=== PATIENT | male | born 1985 | race Two or more races ===

== ENCOUNTER 2017-07-12 15:57 | Emergency (ER) | payer OTHER, SELFPAY ==
[~2017-07-12] VITALS: Ht 180.3 cm; Wt 95.5 kg
[2017-07-12 16:58] LABS: BASO # 0.1 K/mm3 (0.0-0.2); BASO % 1.2 % (0.0-1.0); EOS # 0.4 K/mm3 (0.0-0.50); LARGE UNSTAINED CELL # 0.2 K/mm3 (0.0-0.4); LARGE UNSTAINED CELL % 1.9 % (0.0-4.0); LYMPH # 2.6 K/mm3 (1.5-4.5); LYMPH % 28.2 % (24.0-44.0); MEAN CORPUSCULAR HEMOGLOBIN 29.6 pg (27.0-33.0); MEAN CORPUSCULAR HGB CONC 33.8 g/dl (32.0-36.5); MEAN CORPUSCULAR VOLUME 87.4 fl (80.0-96.0); MONO # 0.6 K/mm3 (0.0-0.8); MONO % 6.7 % (0.0-5.0); NEUTROPHILS # 5.1 K/mm3 (1.8-7.7); PLATELET COUNT, AUTOMATED 234 k/mm3 (150-450); RED CELL DISTRIBUTION WIDTH 12.3 % (11.5-14.5); WHITE BLOOD COUNT 8.8 K/mm3 (4.0-10.0)
--- NOTE | 2017-07-12 16:59 | REP ---
Clinical: Bilateral flank pain. Findings: Lung bases are clear. Visualized heart and pericardium normal. Liver, spleen, pancreas, collapsed gallbladder, bilateral adrenal glands and kidneys are normal. Specifically, no perinephric stranding, hydroureteronephrosis, intrarenal or obstructing ureteral calculi are identified. The enteric system is without obstruction or acute inflammatory process and a normal terminal ileum and appendix are identified in the right lower quadrant. Pelvis demonstrates collapsed normal bladder and age appropriate prostate/seminal vesicles. No free air. No free fluid. No adenopathy. Abdominal aorta without aneurysm. Surrounding musculoskeletal structures are intact. Impression: Normal noncontrast CT of the abdomen and pelvis. Signed by Woody Berry MD 07/12/2017 04:50 P
[2017-07-12 17:24] LABS: ANION GAP 6 MEQ/L (8-16); BLOOD UREA NITROGEN 10 MG/DL (7-18); CALCIUM LEVEL 9.1 MG/DL (8.5-10.1); CARBON DIOXIDE LEVEL 31 MEQ/L (21-32); CHLORIDE LEVEL 103 MEQ/L (98-107); CREATININE FOR GFR 0.89 MG/DL (0.70-1.30); GLOMERULAR FILTRATION RATE > 60.0 (>60); GLUCOSE, FASTING 83 MG/DL (70-105); POTASSIUM SERUM 3.9 MEQ/L (3.5-5.1); SODIUM LEVEL 140 MEQ/L (136-145)
[2017-07-12] MEDS ORDERED: NORCOTAB PO (18:04)
[2017-07-12] MEDS ORDERED: CYCL10TA PO (18:04)
[2017-07-12 18:13] VITALS: BP 121/74
== END 2017-07-12 18:14 | disposition home or self-care (01) ==
LOC: M ED 15:57
DX: S39.012A Strain of muscle, fascia and tendon of lower back, initial encounter (principal); X58.XXXA Exposure to other specified factors, initial encounter; Y92.9 Unspecified place or not applicable; Y93.9 Activity, unspecified; Y99.9 Unspecified external cause status; F43.10 Post-traumatic stress disorder, unspecified; F17.200 Nicotine dependence, unspecified, uncomplicated

== ENCOUNTER → 2017-12-07 | Outpatient (REF) | payer OTHER | LOC: M SFHCLERA 18:50 | DX: J00 Acute nasopharyngitis [common cold] (principal) ==

== ENCOUNTER 2018-08-20 16:14 | Emergency (ER) | payer OTHER | END 2018-08-20 17:27 | disposition home or self-care (01) | LOC: M ED 16:14 | DX: S02.5XXA Fracture of tooth (traumatic), initial encounter for closed fracture (principal); X58.XXXA Exposure to other specified factors, initial encounter; Y92.89 Other specified places as the place of occurrence of the external cause; F43.10 Post-traumatic stress disorder, unspecified; F17.200 Nicotine dependence, unspecified, uncomplicated | CPT/HCPCS: 99282 ==

== ENCOUNTER 2019-01-14 07:13 | Day surgery (SDC) | payer OTHER ==
[~2019-01-14] VITALS: Ht 180.3 cm; Wt 98.0 kg
[~2019-01-14 07:13] MED LIST: ACET-683 PO; AMOX500C PO; CYCL10TA PO; IBUP-1022 PO; IBUP1TAB7 PO; LR 1,000 ML IV ONE; MULT1TAB10 PO; NORCOTAB PO; VITA100067 PO; ceFAZolin SOD 1 GM in D5W MINI-BAG PLUS 50 ML IV ONE
[2019-01-14 07:35] LABS: HEMATOCRIT 49.4 % (42.0-52.0); HEMOGLOBIN 16.4 g/dl (13.5-17.5); MEAN CORPUSCULAR HEMOGLOBIN 28.4 pg (27.0-33.0); MEAN CORPUSCULAR HGB CONC 33.2 g/dl (32.0-36.5); MEAN CORPUSCULAR VOLUME 85.6 fl (80.0-96.0); PLATELET COUNT, AUTOMATED 316 10^3/uL (150-450); RED BLOOD COUNT 5.77 10^6/uL (4.30-6.10); WHITE BLOOD COUNT 11.4 10^3/uL (4.0-10.0)
[2019-01-14] MEDS ORDERED: ceFAZolin SOD 1 GM in D5W MINI-BAG PLUS 50 ML IV ONE (07:45)
[2019-01-14 08:07] LABS: BLOOD UREA NITROGEN 11 MG/DL (7-18); CALCIUM LEVEL 8.8 MG/DL (8.5-10.1); CARBON DIOXIDE LEVEL 28 MEQ/L (21-32); CHLORIDE LEVEL 106 MEQ/L (98-107); CREATININE FOR GFR 0.92 MG/DL (0.70-1.30); GLOMERULAR FILTRATION RATE > 60.0 (>60); GLUCOSE, FASTING 81 MG/DL (70-100); POTASSIUM SERUM 4.5 MEQ/L (3.5-5.1); SODIUM LEVEL 139 MEQ/L (136-145)
[2019-01-14] MEDS ORDERED: fentaNYL 250 MCG/5 ML INJECTION (J3010) As Ordered ONE (08:33)
[2019-01-14] MEDS ORDERED: ROCURONIUM BROMIDE 50 MG/5 ML VIAL As Ordered ONE ×2 (08:33→10:19)
[2019-01-14] MEDS ORDERED: PROPOFOL 200 MG/20 ML VIAL As Ordered ONE (08:33)
[2019-01-14] MEDS ORDERED: LIDOCAINE 2% INJ 100 MG/5 ML SDV (FOR ANES.) As Ordered ONE (08:33)
[2019-01-14] MEDS ORDERED: dexameTHASONE 4 MG/ML 1ML VIAL (J1100) As Ordered ONE (08:33)
[2019-01-14] MEDS ORDERED: MIDAZOLAM INJ 2 MG/2 ML VIAL (J2250) As Ordered ONE (08:33)
[2019-01-14] MEDS ORDERED: BUPIVACAINE HCL 0.25% 10 ML VIAL As Ordered ONE (09:15)
[2019-01-14] MEDS ORDERED: BUPIVACAINE LIPOSOME/PF 1.3% 20ML VIAL (13.3MG/ML)(EXPAREL)(C9290 PER1MG) As Ordered ONE (09:15)
[2019-01-14] MEDS ORDERED: ONDANSETRON 4MG/2ML VIAL (J2405) As Ordered ONE (10:24)
[2019-01-14] MEDS ORDERED: SUGAMMADEX SODIUM 500 MG/5 ML VIAL (BRIDION) As Ordered ONE (10:33)
[2019-01-14] MEDS ORDERED: KETOROLAC 60 MG/2 ML VIAL (J1885) As Ordered ONE (10:36)
[2019-01-14] MEDS ORDERED: HYDROmorphone HCL 2 MG/ML 1ML VIAL (J1170) As Ordered ONE (10:48)
[2019-01-14] MEDS ORDERED: LR 1,000 ML IV SCH ×3 (11:00→12:30)
[2019-01-14] MEDS ORDERED: fentaNYL 100 MCG/2 ML INJECTION (J3010) IV PRN ×2 (11:00→12:30)
[2019-01-14] MEDS ORDERED: HYDROMORPHONE HCL 0.5 MG/ 0.5 ML SYRINGE (J1170 PER 1) IV PRN ×2 (11:00→12:30)
[2019-01-14] MEDS ORDERED: ONDANSETRON 4MG/2ML VIAL (J2405) IV PRN (11:15)
[2019-01-14] MEDS ORDERED: NORCO, ANEXSIA 5/325MG TABLET (HYDROcodone/ACETAMINOPHEN) PO PRN ×2 (11:15→12:30)
[2019-01-14 12:50] VITALS: BP 117/75
--- NOTE | 2019-01-14 17:10 | RO ---
DATE OF PROCEDURE: 01/14/2019 PREOPERATIVE DIAGNOSIS: Incisional hernia. POSTOPERATIVE DIAGNOSIS: Incisional hernia. OPERATIVE PROCEDURE: Incisional hernia repair. SURGEON: Ang Rodriguez MD PREPARATION OPERATOR: ANESTHESIA: General ESTIMATED BLOOD LOSS: Minimal. FLUIDS: Crystalloid. BRIEF PROCEDURE SUMMARY: The patient was brought to the operating room and was given general anesthesia. After adequate anesthesia and preoperative antibiotics were given the patient was prepped and draped in the usual sterile fashion. Next, a midline incision at the upper portion of his previous midline incision was made with a skin knife. Electrocautery was used to cut through dermis and underlying subcutaneous tissue down to the hernia sac itself, which was appreciated. There was a small hole within the fascia and this was less than a centimeter in size, probably 7to 8 mm. The fatty tissue was removed through this area and it was preperitoneal fat. Once this was resected, no bowel was appreciated coming through this area. I cleared up the fascia around this area and indeed a smaller 4 mm size hole was appreciated in the fascia just lateral on the right lateral aspect of the incision. This was closed with one suture of a #0 Ethibond. The small incisional hernia up above was closed with a [id number] #0 Ethibond times two. Once this was cleared, no other hernias were appreciated in this area. The area was copiously irrigated. Local Marcaine with epinephrine was injected in this area, #2-0 Vicryl was used to approximate the deep subcutaneous tissue, #3-0 Vicryl was used to approximate the dermis, #4-0 Vicryl was used to approximate the skin. Steri-Strips and a dry sterile dressing was applied. The patient was awakened from his anesthesia, extubated, brought to the recovery room awake, alert, and hemodynamically stable. Sponge and needle counts correct times two.
== END 2019-01-14 13:00 | disposition home or self-care (01) ==
LOC: M SDC 07:13
PROVIDERS: ATTEND Surgery
DX: K43.2 Incisional hernia without obstruction or gangrene (principal); F41.9 Anxiety disorder, unspecified; E78.00 Pure hypercholesterolemia, unspecified; F43.10 Post-traumatic stress disorder, unspecified; E66.9 Obesity, unspecified; Z68.31 Body mass index [BMI] 31.0-31.9, adult; Z72.0 Tobacco use
CPT/HCPCS: 36415; 49560; 80048; 85027; 88302; C9290; J0690; J1100; J1170; J1885; J2250; J2405; J3010

== ENCOUNTER 2019-02-09 20:29 | Emergency (ER) | payer OTHER ==
[~2019-02-09] VITALS: Ht 180.3 cm; Wt 102.3 kg
[~2019-02-09 20:29] MED LIST changes: +HYDR-3715 PO; -LR 1,000 ML IV ONE; -NORCOTAB PO; -ceFAZolin SOD 1 GM in D5W MINI-BAG PLUS 50 ML IV ONE
[2019-02-09] MEDS ORDERED: GABA600T4 PO (20:43)
[2019-02-09] MEDS ORDERED: OXYCODONE/APAP 5MG/325MG(BULK FOR ED) 1 TABLET PO ONE (22:15)
[2019-02-09] MEDS ORDERED: METHOCARBAMOL 500 MG TAB PO ONE (22:15)
[2019-02-09] MEDS ORDERED: predniSONE 20 MG TAB PO ONE (22:15)
[2019-02-09] MEDS ORDERED: PRED10TA2 PO (22:16)
[2019-02-09] MEDS ORDERED: ROBA500T PO (22:16)
[2019-02-09 22:28] VITALS: BP 131/86
== END 2019-02-09 22:29 | disposition home or self-care (01) ==
LOC: M ED 20:29
DX: M54.42 Lumbago with sciatica, left side (principal); F43.10 Post-traumatic stress disorder, unspecified; Z79.899 Other long term (current) drug therapy

== ENCOUNTER 2019-03-17 16:47 | Day surgery (SDC) | payer OTHER ==
[~2019-03-17] VITALS: Ht 180.3 cm; Wt 97.7 kg
[~2019-03-17 16:47] MED LIST changes: +GABA600T4 PO; +PRED10TA2 PO; +ROBA500T PO
[2019-03-17 17:21] LABS: BASO % 0.4 % (0.0-1.0); EOS # 0.2 10^3/uL (0.0-0.50); EOS % 1.5 % (0.0-3.0); HEMATOCRIT 44.5 % (42.0-52.0); HEMOGLOBIN 15.3 g/dl (13.5-17.5); LYMPH # 2.6 10^3/uL (1.5-4.5); LYMPH % 24.8 % (24.0-44.0); MEAN CORPUSCULAR HEMOGLOBIN 29.4 pg (27.0-33.0); MEAN CORPUSCULAR HGB CONC 34.4 g/dl (32.0-36.5); MEAN CORPUSCULAR VOLUME 85.4 fl (80.0-96.0); MONO # 0.9 10^3/uL (0.0-0.8); MONO % 8.3 % (0.0-5.0); NEUTROPHILS # 6.9 10^3/uL (1.8-7.7); NEUTROPHILS % 64.7 % (36.0-66.0); PLATELET COUNT, AUTOMATED 296 10^3/uL (150-450); RED BLOOD COUNT 5.21 10^6/uL (4.30-6.10); WHITE BLOOD COUNT 10.6 10^3/uL (4.0-10.0)
[2019-03-17 17:30] LABS: APPEARANCE, URINE CLEAR (CLEAR); BACTERIA, URINE AUTO NEGATIVE (NEGATIVE); BILIRUBIN, URINE AUTO NEGATIVE (NEGATIVE); BLOOD, URINE BLOOD 1+ (NEGATIVE); COLOR, URINE STRAW (YELLOW); GLUCOSE, URINE (UA) AUTO NEGATIVE (NEGATIVE); KETONE, URINE AUTO NEGATIVE (NEGATIVE); LEUKOCYTE ESTERASE, URINE AUTO NEGATIVE (NEGATIVE); NITRITE, URINE AUTO NEGATIVE (NEGATIVE); PROTEIN, URINE AUTO NEGATIVE (NEGATIVE); RBC, URINE AUTO 3 /HPF (0-3); SPECIFIC GRAVITY URINE AUTO 1.003 (1.002-1.035); SQUAMOUS EPITHELIAL CELL UR AU 0 /HPF (0-6); UROBILINOGEN, URINE AUTO 0.2 mg/dL (0.0-2.0); WBC, URINE AUTO 0 /HPF (0-3)
[2019-03-17 17:43] LABS: ALBUMIN 4.1 GM/DL (3.2-5.2); ALT/SGPT 19 U/L (12-78); BILIRUBIN,DIRECT 0.1 MG/DL (0.0-0.2); BILIRUBIN,TOTAL 0.4 MG/DL (0.2-1.0); BLOOD UREA NITROGEN 8 MG/DL (7-18); CALCIUM LEVEL 8.9 MG/DL (8.5-10.1); CARBON DIOXIDE LEVEL 28 MEQ/L (21-32); CHLORIDE LEVEL 103 MEQ/L (98-107); CREATININE FOR GFR 0.82 MG/DL (0.70-1.30); GLOMERULAR FILTRATION RATE > 60.0 (>60); GLUCOSE, FASTING 81 MG/DL (70-100); SODIUM LEVEL 136 MEQ/L (136-145); TOTAL PROTEIN 7.7 GM/DL (6.4-8.2)
[2019-03-17] MEDS ORDERED: ONDANSETRON 4MG/2ML VIAL (J2405) IV ONE (18:00)
[2019-03-17] MEDS ORDERED: ISOVUE-370 76% 100ML VIAL (Q9967) As Ordered ONE (18:16)
--- NOTE | 2019-03-17 18:44 | REPVR ---
EXAM: CT Abdomen and Pelvis With Contrast EXAM DATE/TIME: 03/17/2019 6:21 PM CLINICAL HISTORY: 33 years old, male; Abdominal pain; Generalized; Additional info: Rlq pain; R/O appy TECHNIQUE: Imaging protocol: Axial computed tomography images of the abdomen and pelvis with intravenous contrast. Coronal and sagittal reformatted images were created and reviewed. Radiation optimization: All CT scans at this facility use at least one of these dose optimization techniques: automated exposure control; mA and/or kV adjustment per patient size (includes targeted exams where dose is matched to clinical indication); or iterative reconstruction. Contrast material: ISOVUE 370; Contrast volume: 100 ml; Contrast route: IV; COMPARISON: CT ABD/PEL W/IV ORAL CONTRAS 11/06/2018 6:47 PM FINDINGS: Lungs: Atelectasis right lower lobe. ABDOMEN: Liver: There is a diffuse decrease in hepatic parenchymal density, consistent with fatty infiltration. Gallbladder and bile ducts: Normal. No calcified stones. No ductal dilation. Pancreas: Normal. No ductal dilation. Spleen: Normal. No splenomegaly. Adrenals: Normal. No mass. Kidneys and ureters: Normal. No hydronephrosis. Stomach and bowel: Normal. No obstruction. No mucosal thickening. Appendix: The appendix demonstrates diffuse distention measuring 12 mm in maximum thickness with periappendiceal inflammation, consistent with acute appendicitis. No abscess demonstrated. PELVIS: Bladder: Unremarkable as visualized. Reproductive: Unremarkable as visualized. ABDOMEN and PELVIS: Intraperitoneal space: Normal. No free air. No significant fluid collection. Bones/joints: No acute fracture. No dislocation. Soft tissues: Unremarkable. Vasculature: Normal. No abdominal aortic aneurysm. Lymph nodes: Normal. No enlarged lymph nodes. IMPRESSION: 1. There is a diffuse decrease in hepatic parenchymal density, consistent with fatty infiltration. 2. Acute appendicitis. A critical call has been made to speak with the ordering physician/practitioner. This report will be amended once consultation has occurred. Electronically signed by: Lloyd Brizuela On 03/17/2019 18:43:56 PM
[2019-03-17] MEDS ORDERED: MORPHINE 4 MG/ML 1ML VIAL/SYRINGE (J2270) IV ONE (19:00)
[2019-03-17] MEDS ORDERED: PIPERACILLIN/TAZOBACTAM SOD 3.375 GM in D5W MINI-BAG PLUS 50 ML IV ONE (19:00)
[2019-03-17] MEDS ORDERED: KETOROLAC 60 MG/2 ML VIAL (J1885) As Ordered ONE (19:17)
[2019-03-17] MEDS ORDERED: MIDAZOLAM INJ 2 MG/2 ML VIAL (J2250) As Ordered ONE (19:17)
[2019-03-17] MEDS ORDERED: ONDANSETRON 4MG/2ML VIAL (J2405) As Ordered ONE (19:17)
[2019-03-17] MEDS ORDERED: LIDOCAINE 2% INJ 100 MG/5 ML SDV (FOR ANES.) As Ordered ONE (19:17)
[2019-03-17] MEDS ORDERED: dexameTHASONE 4 MG/ML 1ML VIAL (J1100) As Ordered ONE (19:17)
[2019-03-17] MEDS ORDERED: fentaNYL 250 MCG/5 ML INJECTION (J3010) As Ordered ONE (19:17)
[2019-03-17] MEDS ORDERED: PROPOFOL 200 MG/20 ML VIAL As Ordered ONE (19:18)
[2019-03-17] MEDS ORDERED: ROCURONIUM BROMIDE 50 MG/5 ML VIAL As Ordered ONE (19:18)
[2019-03-17] MEDS ORDERED: BUPIVACAINE/EPIN 0.25% 30 ML VIAL As Ordered ONE (19:37)
[2019-03-17] MEDS ORDERED: SUCCINYLCHOLINE 100 MG/5 ML SYRINGE (J0330) As Ordered ONE (19:57)
[2019-03-17] MEDS ORDERED: PHENYLephrine HCL 500 MCG/5 ML (100MCG/ML) SYRINGE (J2370) As Ordered ONE (20:15)
--- NOTE | 2019-03-17 20:17 | HPE ---
DATE OF ADMISSION: 03/17/2019 CHIEF COMPLAINT: Right lower quadrant pain. HISTORY OF PRESENT ILLNESS: The patient is a 33-year-old male who presents with right lower quadrant abdominal pain, started on Sunday. It got progressively worse over the day today, started around 3 o'clock this morning. It moved from around the umbilicus down to the right lower quadrant, so he came into emergency room this evening for evaluation. In the emergency room (ER), he had a slightly elevated white count as well as CT findings suspicious for appendicitis, so I was called to evaluate. No prior trauma to the lower abdomen. He did have an incisional hernia repair done by Dr. Rodriguez a few weeks ago. No other problems with his abdomen recently. Denies fevers, chills, nausea, vomiting or changes in bowel movements. PAST MEDICAL HISTORY: Post-traumatic stress disorder (PTSD). Migraines. PAST SURGICAL HISTORY: Hernia repair. Exploratory lap for intussusception. Bilateral inguinal hernia repair. ALLERGIES: None. HOME MEDICATIONS: None. SOCIAL HISTORY: Smokes half a pack a day. Denies drug or alcohol abuse. FAMILY HISTORY: Noncontributory. REVIEW OF SYSTEMS: Pertinent positives and negatives as stated in the history of the present illness. PHYSICAL EXAMINATION: General: Alert and oriented times three. No acute distress. Vital signs: Temperature 98.1, pulse 87, respirations 16, blood pressure 133/89, pulse oximetry 98% on room air. HEENT: Pupils equally round and react to light accommodation. Heart: S1, S2, regular rate and rhythm. Lungs: Clear to auscultation bilaterally. Abdomen: Soft, tender to palpation right lower quadrant, localized guarding, midline supraumbilical recent incision from open hernia repair. Extremities: No clubbing, cyanosis or edema. LABORATORY DATA: White count 10.6, hemoglobin 15.3, platelets 296, potassium 4, creatinine 0.82. IMAGING: CT abdomen and pelvis shows thickened appendix, dilated to 12 mm with periappendiceal inflammation consistent with acute appendicitis. No signs of an abscess. ASSESSMENT/PLAN: The patient is a 33-year-old male, signs and symptoms consistent with acute appendicitis. Recommendation is to proceed with laparoscopic, possible open appendectomy. Risks and benefits of procedure not limited to but including bleeding, infection, hernia formation, damage to surrounding structures and need for further surgery were discussed in detail with the patient. Informed consent was obtained and procedure was planned. Postoperatively, as long as everything goes well, plan will be to discharge him home today. He will be given pain medications to take home and he will be able to followup with me in the office in 2 weeks.
[2019-03-17] MEDS ORDERED: SUGAMMADEX SODIUM 500 MG/5 ML VIAL (BRIDION) As Ordered ONE (20:24)
[2019-03-17] MEDS ORDERED: NORCO, ANEXSIA 5/325MG TABLET (HYDROcodone/ACETAMINOPHEN) As Ordered ONE (20:54)
[2019-03-17] MEDS ORDERED: fentaNYL 100 MCG/2 ML INJECTION (J3010) As Ordered ONE (20:54)
[2019-03-17] MEDS: NORCO, ANEXSIA 5/325MG TABLET (HYDROcodone/ACETAMINOPHEN) PO PRN ×2 (20:55→22:11)
[2019-03-17] MEDS ORDERED: NORC1TAB7 PO (20:55)
[2019-03-17] MEDS: fentaNYL 100 MCG/2 ML INJECTION (J3010) IV PRN ×4 (20:55→21:12)
[2019-03-17] MEDS ORDERED: ONDANSETRON 4MG/2ML VIAL (J2405) IV PRN (21:15)
[2019-03-17] MEDS ORDERED: NORCO, ANEXSIA 5/325MG TABLET (HYDROcodone/ACETAMINOPHEN) PO PRN (21:15)
[2019-03-17] MEDS ORDERED: LR 1,000 ML IV SCH (21:15)
--- NOTE | 2019-03-17 21:26 | RO ---
DATE OF PROCEDURE: 03/17/2019 PREOPERATIVE DIAGNOSIS: Acute appendicitis. POSTOPERATIVE DIAGNOSIS: Acute appendicitis. PROCEDURE: Laparoscopic appendectomy. SURGEON: Dr. Solo Gray CONTAINER REPAIRER: None. ANESTHESIA: General. ESTIMATED BLOOD LOSS: 5 mL. COMPLICATIONS: None. INDICATIONS FOR PROCEDURE: Patient is a 33-year-old male who presents with right lower quadrant abdominal pain, found to have acute appendicitis. Recommendation was to proceed with laparoscopic, possible open appendectomy. Risks and benefits of the procedure not limited to but include bleeding, infection, hernia formation, damage to surrounding structures, and need for further surgery were discussed in detail with the patient. Informed consent was obtained and procedure was planned. DESCRIPTION OF PROCEDURE: The patient was brought back to operating room three, after sufficient sedation, the abdomen was sterilely prepped and draped. Next, a time-out was done to confirm proper patient, proper procedure. Following that, a 5 mm incision was made in the left upper quadrant, Veress needle inserted and the abdomen was insufflated to 15 mmHg. Next, a 5 mm Optiview port was used to gain access to the abdomen. Once the abdomen was entered, there were multiple adhesions along the entire midline from previous exploratory lap. A 5 mm port was placed in the left lower quadrant. Using the Enseal, all of the omental adhesions along the anterior abdominal wall were taken down. After doing so, I was able to place an 8 port supraumbilically in the midline. Using that port, in the left lower quadrant, I was able to identify the appendix, elevate it up in the air and took down the mesoappendix all way to the base of the appendix using the Enseal. Once that was completed, the base of the appendix was ligated with two PDS Endoloops and then amputated using the Enseal. It was placed inside of a 5 mm EndoCatch bag and brought out through the supraumbilical port site. After doing so, the fascia at the umbilical port site was closed with a [id number] #0 Vicryl suture. The abdomen was then desufflated. Skin incisions closed with #4-0 Vicryl subcuticular sutures. The abdomen was cleaned and dried. Steri-Strips, 4x4 and tape were applied, thus ending procedure.
[2019-03-17 22:20] VITALS: BP 117/78
[2019-03-19] MEDS ORDERED: TRAM50TA2 PO (17:51)
[2019-03-21] MEDS ORDERED: HYDR-3715 PO (19:37)
== END 2019-03-17 22:36 | disposition home or self-care (01) ==
LOC: M ED 16:47 → M SDC 19:08
PROVIDERS: ATTEND Surgery
DX: K35.80 Unspecified acute appendicitis (principal); F43.10 Post-traumatic stress disorder, unspecified; G43.909 Migraine, unspecified, not intractable, without status migrainosus; Z72.0 Tobacco use

== ENCOUNTER 2019-03-23 15:02 | Emergency (ER) | payer OTHER ==
[~2019-03-23] VITALS: Ht 180.3 cm; Wt 97.7 kg
[~2019-03-23 15:02] MED LIST changes: +NORC1TAB7 PO; +TRAM50TA2 PO
[2019-03-23] MEDS ORDERED: AMOX500T2 (15:14)
[2019-03-23] MEDS ORDERED: NS 1,000 ML IV SCH (15:30)
[2019-03-23] MEDS ORDERED: ONDANSETRON 4MG/2ML VIAL (J2405) IV ONE (15:30)
[2019-03-23 15:45] LABS: HEMATOCRIT 43.6 % (42.0-52.0); HEMOGLOBIN 14.9 g/dl (13.5-17.5); MEAN CORPUSCULAR HEMOGLOBIN 29.4 pg (27.0-33.0); MEAN CORPUSCULAR HGB CONC 34.2 g/dl (32.0-36.5); PLATELET COUNT, AUTOMATED 331 10^3/uL (150-450); RED BLOOD COUNT 5.07 10^6/uL (4.30-6.10)
[2019-03-23 15:55] LABS: INR 0.98; PROTHROMBIN TIME 13.1 SECONDS (12.1-14.4)
[2019-03-23 16:08] LABS: BLOOD UREA NITROGEN 12 MG/DL (7-18); CARBON DIOXIDE LEVEL 27 MEQ/L (21-32); CHLORIDE LEVEL 105 MEQ/L (98-107); CREATININE FOR GFR 0.89 MG/DL (0.70-1.30); GLOMERULAR FILTRATION RATE > 60.0 (>60); GLUCOSE, FASTING 88 MG/DL (70-100); POTASSIUM SERUM 4.4 MEQ/L (3.5-5.1); SODIUM LEVEL 139 MEQ/L (136-145)
[2019-03-23] MEDS ORDERED: ISOVUE-370 76% 100ML VIAL (Q9967) As Ordered ONE (16:15)
[2019-03-23 17:11] VITALS: BP 116/72
--- NOTE | 2019-03-24 07:56 | REP ---
REASON: Fall yesterday. COMPARISON: 6 days ago. CONTRAST: 100 mL Isovue 370. Patient is status post appendectomy since the prior exam. The lung bases are essentially clear and unchanged with minimal subsegmental atelectatic changes and dependent atelectatic changes present. The liver, gallbladder, spleen, pancreas, adrenal glands, and kidneys are again seen without be within normal limits. The abdominal aorta para-aortic regions are unchanged and again seen to be within normal limits. There is no free intraperitoneal air. There is no intestinal obstruction. Multiple gas filled and partially fluid filled small bowel loops are seen in the abdomen in no particular fashion. The markedly dilated appendix seen on the prior examination has been surgically removed. There is a small amount of fluid in the right lateroconal fascia likely the result of postoperative change. There is no evidence of intestinal obstruction or significant inflammatory disease. CT PELVIS: There is no mass or adenopathy. There is no free fluid or free air. The bowel loops and their mesenteries are within normal limits. Bone window technique throughout the exam shows no change in the osseous structures. IMPRESSION: Status post appendectomy. There appears to be a mild postoperative ileus. This should be correlated clinically with followup. Other findings as described above. Electronically Signed by Ta Munroe DO 03/24/2019 08:44 A
--- NOTE | 2019-03-25 14:52 | ED PDOC ---
Post-Departure Follow-Up dr juarez faxed formal report of ct abd/p for fu Ailyn Whyte MD March 25, 2019 14:52
== END 2019-03-23 17:40 | disposition home or self-care (01) ==
LOC: M ED 15:02
DX: S20.219A Contusion of unspecified front wall of thorax, initial encounter (principal); W19.XXXA Unspecified fall, initial encounter; Y92.89 Other specified places as the place of occurrence of the external cause; Z98.890 Other specified postprocedural states
CPT/HCPCS: 74177; 80048; 85027; 85610; 96361; 96374; 99284; J2405; Q9967

== ENCOUNTER 2019-04-22 16:02 | Emergency (ER) | payer OTHER ==
[~2019-04-22] VITALS: Ht 180.3 cm; Wt 98.6 kg
[~2019-04-22 16:02] MED LIST changes: +AMOX500T2
[2019-04-22 16:03] VITALS: BP 131/68
== END 2019-04-22 19:18 | disposition left against medical advice (07) ==
LOC: M ED 19:10
DX: Z53.29 Procedure and treatment not carried out because of patient's decision for other reasons (principal)

== ENCOUNTER → 2019-05-02 | Outpatient (REF) | payer OTHER ==
[~2019-05-02] MED LIST changes: +ACET1TAB16; +LIDO5DIS41 TOP; +MEDR4PAK PO; +NAPR-837 PO; +VALI5TAB PO
[2019-05-02 16:35] LABS: COLLAGEN EPINEPHRINE 121 SECONDS (74-162)
[2019-05-02 16:53] LABS: INR 1.07; PROTHROMBIN TIME 13.6 SECONDS (11.8-14.0)
== END ==
LOC: M LABDRAW1 16:00
PROVIDERS: ATTEND Physical Medicine & Rehabilitation
DX: M51.36 Other intervertebral disc degeneration, lumbar region (principal)

== ENCOUNTER 2019-05-03 14:35 | Emergency (ER) | payer OTHER ==
[~2019-05-03 14:35] MED LIST changes: -ACET1TAB16; -LIDO5DIS41 TOP; -MEDR4PAK PO; -NAPR-837 PO; -VALI5TAB PO
[2019-05-03] MEDS ORDERED: ACET1TAB16 (14:43)
[2019-05-03] MEDS ORDERED: dexameTHASONE 20 MG/5 ML VIAL (J1100) IM ONE (15:00)
[2019-05-03] MEDS ORDERED: KETOROLAC 60 MG/2 ML VIAL (J1885) IM ONE (15:00)
[2019-05-03] MEDS ORDERED: diazePAM 5 MG TAB PO ONE (15:00)
[2019-05-03] MEDS ORDERED: PERCOCET 5MG/325MG TAB PO ONE (15:00)
--- NOTE | 2019-05-03 15:48 | REP ---
Clinical: Sudden, acute pain. Technique: Axial noncontrast images from T12 through mid sacrum with coronal and sagittal re-formations. Findings: Vertebral bodies are intact. Alignment and lordosis maintained. No acute fracture / compression injury or subluxation. Small posterior disc bulge at L5-S1 is consistent and stable when compared to MRI dated 03/29/2019. Spinal canal is patent. Posterior elements and spinous processes are intact. Paravertebral soft tissues are normal. Impression: No significant acute findings. Small posterior disc bulge at L5-S1 relatively stable compared to MRI dated 03/29/2019. Electronically Signed by Woody Berry MD 05/03/2019 03:40 P
[2019-05-03] MEDS ORDERED: NAPR-837 PO (16:31)
[2019-05-03] MEDS ORDERED: MEDR4PAK PO (16:31)
[2019-05-03] MEDS ORDERED: VALI5TAB PO (16:31)
[2019-05-03] MEDS ORDERED: LIDO5DIS41 TOP (16:31)
[2019-05-03 16:43] VITALS: BP 130/87
[2019-05-08] MEDS ORDERED: IBUP1TAB7 PO (14:07)
== END 2019-05-03 16:50 | disposition home or self-care (01) ==
LOC: EDBD 14:35 → M ED 14:35
DX: G89.29 Other chronic pain (principal); M54.5 Low back pain; G43.909 Migraine, unspecified, not intractable, without status migrainosus; F43.10 Post-traumatic stress disorder, unspecified; F17.210 Nicotine dependence, cigarettes, uncomplicated
CPT/HCPCS: 72131; 96372; 99284; J1100; J1885

== ENCOUNTER 2019-05-04 15:34 | Emergency (ER) | payer OTHER ==
[~2019-05-04] VITALS: Ht 180.3 cm; Wt 97.7 kg
[~2019-05-04 15:34] MED LIST changes: +ACET1TAB16; +LIDO5DIS41 TOP; +MEDR4PAK PO; +NAPR-837 PO; +VALI5TAB PO
[2019-05-04] MEDS ORDERED: MORPHINE 2 MG/ML 1ML SYRINGE (J2270) IV ONE ×2 (16:30→20:00)
[2019-05-04] MEDS ORDERED: PERCOCET 5MG/325MG TAB PO ONE ×2 (17:15→22:00)
--- NOTE | 2019-05-04 21:23 | REPVR ---
EXAM: MR Lumbar Spine Without Contrast. EXAM DATE/TIME: 05/04/2019 7:17 PM CLINICAL HISTORY: 33 years old, male; Low back pain and lumbago with sciatica; Patient HX: PT states heard pop yesterday and had instant pain and since has had increase pain and today numbness down left leg; Additional info: Injury yesterday, today radiculopathy/paresthesia lt buttock TECHNIQUE: Imaging protocol: Multiplanar magnetic resonance images of the lumbar spine without intravenous contrast. COMPARISON: CT Spine, lumbar w/o contrast 05/03/2019 3:23 PM FINDINGS: Vertebrae: Unremarkable. Spinal cord: Normal conus terminates at the T12-L1 disc space level. L1-L2: Normal. L2-L3: Normal. L3-L4: Normal.. L4-L5: Normal. L5-S1: Mild decreased disc signal. Small posterior central disc protrusion and annular fissure. No nerve root impingement or spinal stenosis. Minimal degenerative facet arthrosis at L5-S1. Soft tissues: Unremarkable. IMPRESSION: Small posterior central disc protrusion and annular fissure at L5-S1 without nerve root impingement or spinal stenosis. Electronically signed by: Virgil Hernandez On 05/04/2019 21:23:02 PM
[2019-05-04 22:11] VITALS: BP 115/75
[2019-05-04] MEDS ORDERED: LIDOCAINE 5% (LIDODERM) PATCH TD ONE (22:15)
[2019-05-05] MEDS ORDERED: **NOTE PATIENT COMMENT** MISC XX SCH (10:00)
--- NOTE | 2019-05-05 13:28 | ED PDOC ---
Post-Departure Follow-Up dr muñoz and arabella mittal faxed formal report of mri ls spine for fu Ailyn Whyte MD May 05, 2019 13:28
[2019-05-08] MEDS ORDERED: IBUP1TAB7 PO (14:07)
== END 2019-05-04 22:23 | disposition home or self-care (01) ==
LOC: M ED 15:34
DX: M54.17 Radiculopathy, lumbosacral region (principal); M54.32 Sciatica, left side; M51.27 Other intervertebral disc displacement, lumbosacral region; E78.5 Hyperlipidemia, unspecified; G43.909 Migraine, unspecified, not intractable, without status migrainosus; F17.210 Nicotine dependence, cigarettes, uncomplicated
CPT/HCPCS: 72148; 96374; 96376; 99284; J2270

== ENCOUNTER → 2019-07-04 | Outpatient (CLI) | payer OTHER ==
--- NOTE | 2019-07-17 02:21 | ECWPNPC ---
PATIENT NAME: HELENE SILVERMAN : 1985 GENDER: MALE VISIT DATE: 07/04/2019 DISCHARGE DATE: 07/04/19 1143 VISIT LOCKED DATE TIME: PHYSICIAN: ISIDRO HICKMAN MD RESOURCE: ISIDRO HICKMAN MD REASON FOR APPOINTMENT 1. POST ABD. PAIN D/T SURGERY HISTORY OF PRESENT ILLNESS NEW PATIENT CONSULT: WHEN DID YOUR PAIN FIRST START? . BRIEFLY DESCRIBE HOW YOUR PAIN STARTED? . HOW DOES YOUR PAIN CHANGE WITH TIME? . DOES YOUR PAIN AWAKEN YOU FROM SLEEP? . HOW MANY HOURS OF SLEEP DO YOU NORMALLY GET? . ANY DIAGNOSTIC TESTING? . FACILITY WHERE TESTS WERE DONE? ____. PAIN TREATMENT TREATMENT YES CANCER HAVE YOU EVER HAD ANY TYPE OF CANCER?NO NO. 33 YEAR OLD MALE PATIENT WITH A HISTORY OF CHRONIC ABDOMINAL PAIN. THE PATIENT DESCRIBES THE PAIN SHARP, SHOOTING, STABBING, NIGHTLY, AND CONTINUOUS WITH A PAIN SCORE OF 4-10/10 DEPENDING ON PHYSICAL ACTIVITY. THE PATIENT STATES HIS PAIN BEGINS IN HIS LOW BACK AND RADIATES INTO HIS LEGS WITH ALSO LOSS OF SENSATION AND WEAKNESS IN BOTH LEGS. THE PATIENT SAYS HE HAS BEEN SUFFERING FROM HIS PAIN FOR SEVERAL YEARS AFTER HE WAS PICKING UP AN ITEM WHEN HE EXPERIENCED A POP IN HIS BACK. THE PATIENT MENTIONS HE HAS A HISTORY OF ABDOMINAL SURGERIES, INCLUDING A BILATERAL INGUINAL REPAIR WITH MESH, YET THE PAIN CONTINUES TO PERSIST. THE PATIENT SAYS HIS PAIN IS AFFECTING HIS ABILITY TO PERFORM HIS DAILY ACTIVITIES SUCH WORKING, COMPLETING TASKS AT HOME, AND GROCERY SHOPPING. THE PATIENT SAYS HE USES TYLENOL NEEDED FOR HIS PAIN AND IT HAS HELPED AID IN PAIN RELIEF. THE PATIENT SAYS HE HAS TRIED GABAPENTIN IN THE PAST, HOWEVER HE EXPERIENCED NUMEROUS SIDE EFFECTS, SUCH DIZZINESS, WEAKNESS, AND TINGLING SENSATIONS. PATIENT DENIES UNEXPLAINABLE WEIGHT LOSS, FEVER, CHILLS, NEW CHANGES ON HIS URINARY OR BOWEL CONTROL. PAIN SCREENING: PATIENT HAS A COMPLAINT OF ACUTE OR CHRONIC PAIN :YES FALL RISK SCREENING: SCREENING : NO FALLS IN THE PAST YEAR. MARTIN INVENTORY: QUESTIONNAIRE ASSESSEDTBD SCORE VALUE CALCULATED TBD CURRENT MEDICATIONS TAKING ACETAMINOPHEN 500 MG TABLET 2 TABLETS NEEDED ORALLY 3 TIMES A DAY NOT-TAKING GABAPENTIN 800 MG TABLET 1 TABLET ORALLY TWICE A DAY NOT-TAKING AMOXICILLIN 875 MG TABLET 1 TABLET ORALLY EVERY 12 HRS MEDICATION LIST REVIEWED AND RECONCILED WITH THE PATIENT PAST MEDICAL HISTORY ABDOMINAL PAIN BACK PAIN PTSD MIGRAINES ALLERGIES N.K.D.A. SURGICAL HISTORY INTUSUSSEPTION 2007 BILATERAL INGUINAL HERNIA REPAIR WITH MESH 01/2010 INCISIONAL HERNIA REPAIR 12/2018 APPENDECTOMY 03/2019 FAMILY HISTORY FATHER: ALIVE 59 YRS, DEGENERATIVE JOINT DISEASE MOTHER: ALIVE 59 YRS, DEGENERATIVE JOINT DISEASE SIBLINGS: ALIVE 39 YRS SON(S): ALIVE 9 YRS MATERNAL GRAND MOTHER: , ALZHEIMER'S 1 SISTER(S) - HEALTHY. 1 SON(S) . SOCIAL HISTORY GENERAL: TOBACCO USE ARE YOU A:CURRENT SMOKER ARE YOU INTERESTED IN QUITTING?THINKING ABOUT QUITTING PREVIOUS QUIT ATTEMPTS?YES, MORE THAN 6 MONTHS AGO. COUNSELED THE PATIENT ON SMOKING CESSATION, EDUCATION [id number]/30/2019 VAPORNO E-CIGARETTENO OTHERS AT HOME: YES. HOUSING: HOUSE WITH STAIRS. EDUCATION LEVEL OF EDUCATION:NOT FINISHED COLLEGE DIET: REGULAR. LANGUAGE LANGUAGES SPOKEN:URDU RECREATIONAL DRUG USE DRUG USE? PAST USE OF MARIJUANA. NONE IN PAST 15 YEARS. EXERCISE: NO REGULAR EXERCISE. 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 GNOSTICISM [id number] SCIENTOLOGY MARITAL STATUS: . ALCOHOL SCREENING DID YOU HAVE A DRINK CONTAINING ALCOHOL IN THE PAST YEAR?YES HOW OFTEN DID YOU HAVE A DRINK CONTAINING ALCOHOL IN THE PAST YEAR?MONTHLY OR LESS (1 POINT) HOW MANY DRINKS DID YOU HAVE ON A TYPICAL DAY WHEN YOU WERE DRINKING IN THE PAST YEAR?1 OR 2 (0 POINTS) HOW OFTEN DID YOU HAVE SIX OR MORE DRINKS ON ONE OCCASION IN THE PAST YEAR?NEVER (0 POINTS) POINTS1 INTERPRETATIONNEGATIVE OCCUPATION: [employer]. HOSPITALIZATION/MAJOR DIAGNOSTIC PROCEDURE SURGERY 03/2019 REVIEW OF SYSTEMS REVIEWED BY: PROVIDER: ISIDRO HICKMAN MD . CONSTITUTIONAL: ANY CHANGE IN YOUR MEDICAL CONDITION? NO . CHILLS NO . FEVER NO . INFECTION: DO YOU HAVE NEW INFECTIONS? NO . DO YOU HAVE HISTORY OF MRSA? NO . MUSCULOSKELETAL: ANY NEW PATTERNS OF PAIN OR NUMBNESS? YES - WORSE . SYTEMIC LUPUS NO . GASTROENTEROLOGY: ANY NEW CHANGE IN BOWEL CONTROL? NO . BARRETTS ESOPHAGUS NO . CIRRHOSIS NO . HEPATITIS NO . LIVER FAILURE NO . ACID REFLUX NO . UNEXPLAINED WEIGHT LOSS NO . GENITOURINARY: ANY NEW CHANGE IN BLADDER CONTROL? NO . IS THERE A CHANCE YOU COULD BE ? NO . HEMATOLOGY/LYMPH: DO YOU TAKE ANY BLOOD THINNERS? (FOR EXAMPLE- COUMADIN, PLAVIX, AGGRENOX, PLATEL, PRADAXA, OR XARELTO) NO . WHEN WAS YOUR LAST DOSE? DATE: TIME: . LOW PLATELET COUNT NO . SICKLE CELL DISEASE NO . VON WILLIEBRANDS NO . FACTOR V LEIDEN NO . THALLASEMIA NO . ANEMIA NO . EASY BRUISING NO . NEUROLOGY: HAVE YOU FALLEN IN THE PAST 12 MONTHS? YES 04/2019 - FELT "POP" IN BACK, WENT TO ED. . ANY NEW EXTREMITY NUMBNESS OR WEAKNESS? YES - NUMBNESS AND TINGLING BOTH LEGS . HEAD INJURY NO . DEMENTIA NO . CEREBRAL PALSY NO . MULTIPLE SCLEROSIS NO . DIZZINESS NO . HEADACHE YES . STROKES YES - HEMIPLEGIC MIGRAINE AGE 13 . VERTIGO NO . CARDIOLOGY: DO YOU HAVE A PACEMAKER OR DEFIBRILLATOR? NO . ANGINA NO . HEART ATTACK NO . HEART SURGERY NO . CONGESTIVE HEART FAILURE/FLUID OVERLOAD NO . CHEST PAIN NO . HIGH BLOOD PRESSURE NO . IRREGULAR HEART BEAT NO . RESPIRATORY: HAVE YOU BEEN SICK IN THE PAST WEEK? NO . FEVER NO . FLU LIKE SYMPTOMS? NO . CPAP NO . BYPAP NO . ASTHMA NO . EMPHYSEMA NO . CHRONIC LUNG DISEASES NO . SHORTNESS OF BREATH ON EXERTION NO . DO YOU USE ANY TYPE OF TOBACCO (SMOKE, SMOKELESS, CHEW)? YES . COUGH NO . SNORING NO . INTEGUMENTARY: DO YOU HAVE ANY RASHES OR OPEN SORES? NO . ALLERGIC/IMMUNO: ARE YOU ALLERGIC TO IV DYE? NO . ANY NEW ALLERGIES? NO . PSYCHIATRIC: DO YOU HAVE THOUGHTS OF HURTING YOURSELF OR SOMEONE ELSE? NO . ARE YOU ABUSED, NEGLECTED, OR IN AN UNSAFE ENVIRONMENT? NO . ENDOCRINOLOGY: ARE YOU DIABETIC? NO . THYROID DISORDER NO . OTHER: DO YOU NEED ANY PRESCRIPTIONS? UNSURE . IF YES, PLEASE LIST: ____ . ANY NEW PROBLEMS WITH YOUR MEDICATIONS? NO . WHEN DID YOU LAST EAT? ____ . WHEN DID YOU LAST DRINK? ____ . WHAT DID YOU LAST DRINK? ____ . NAME OF PERSON DRIVING YOU HOME? ____ . DO YOU HAVE ANY OTHER QUESTIONS OR CONCERNS YES - INSURANCE PROBLEMS PAYING FOR MEDICATIONS . VITAL SIGNS WT 200.6 LBS, HT 71 IN, BMI 27.97 INDEX, BP 120/84 MM HG, HR 78 /MIN, RR 18 /MIN, TEMP 97.9 F, OXYGEN SAT % 100%, NA INITIALS SC 09:44, REVIEWED BY: JOHN. EXAMINATION GENERAL EXAMINATION: PATIENT IS ALERT O X 3 AND COOPERATIVE. LUNGS CLEAR, TO AUSCULTATION. HEART: NO MURMURS OR GALLOPS; FACIAL CRANIAL NERVES ARE GROSSLY NORMAL. GOOD SYMMETRY OF FACIAL MUSCLE MOVEMENT. NORMAL VISUAL RUSSO. PATIENT IS LIMPING A LITTLE FROM THE RIGHT LEG. TENDERNESS IN THE LOW BACK. LEFT LEG IS WEAKER AT EXTENSION AND FLEXION. SURGICAL SCAR AT SUPERIOR INFERIOR OF UMBILICUS WITH A 3 1/2 INCH PERPENDICULAR SCAR LINE. SURGICAL SCAR PRESENT AT PELVIC AREA WELL. PAIN OVER THE ANTERIOR PELVIC AREA, PARTICULARLY OVER THE ILIOINGUINAL AREA ON BOTH SIDES. PRESSING OVER THE ABDOMINAL AREA CREATES DISCOMFORT. 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 SILVERMAN'S PAIN MANAGEMENT CASE. I HAD A LONG CONVERSATION WITH THE PATIENT ABOUT THE OPTION OF DCS TRIAL TO CONSIDER THE PERMANENT IMPLANT. THE PATIENT SAYS HE MAY CONSIDER THE TRIAL IN THE FUTURE. DUE TO THE PELVIC PAIN, I WOULD LIKE TO MOVE FORWARD WITH A BILATERAL ILIOINGUINAL NERVE BLOCK AT THIS TIME. DUE TO THE ABDOMINAL PAIN, I WOULD LIKE TO MOVE FORWARD WITH A SCAR NEUROMA INJECTION A WEEK AFTER THE FIRST INJECTION. WE DISCUSSED THE BENEFITS, RISKS, AND ALTERNATIVES OF BOTH INJECTIONS AND THE PATIENT WOULD LIKE TO PROCEED WITH THE INJECTIONS. I AM REFERRING THE PATIENT TO PALLIATIVE CARE TO CONSIDER MEDICATION MANAGEMENT FOR THE PATIENT. THE PATIENT WILL FOLLOW UP IN SEVERAL WEEKS AFTER THE INJECTIONS. INSTRUCTIONS WERE GIVEN, QUESTIONS WERE ANSWERED, PATIENT REPORTS UNDERSTANDING AND AGREES WITH THE PLAN. I, HOMER HERNANDEZ, DOCUMENTED THE ABOVE INFORMATION ACTING A SCRIBE FOR DR. HICKMAN. I HAVE REVIEWED THE ABOVE DOCUMENT, WRITTEN BY HOMER HOANG AND I VERIFY THAT IT IS ACCURATE. DEAR DEDRICK MARTINEZ, DO: THANK YOU FOR YOUR KIND REFERRAL OF HELENE SILVERMAN. IF YOU WANT TO DISCUSS HIS CASE WITH ME PLEASE CALL ME AT THE PAIN CENTER AT [phone]. SINCERELY, ISIDRO HICKMAN MD PAIN MEDICINE . PREVENTIVE MEDICINE PAIN CLINIC TEACHING: PROCEDURE TEACHING PRINTED INFORMATION ON ILEOINGUINAL NERVE BLOCK GIVEN TO AND REVIEWED WITH PT. ALSO REVIEWED INFORMATION ON ABDOMINAL SCAR NEUROMA INJECTIONS. PRINTED PRE-PROCEDURE INSTRUCTIONS GIVEN TO AND REVIEWED WITH PT. FOR BOTH PROCEDURES AND PT. VERBALIZED UNDERSTANDING. AD. PROCEDURE CODES FA211 ESTABILISHED PATIENT [facility] CHARGE [id number] CURRENT MEDS W/DOSAGES DOCUMENTED G8730 PAIN ASSESS POS TOOL F/U PLAN DOC DISPOSITION & COMMUNICATION FOLLOW UP REASON: CALLI ILIOINGUINAL NERVE BLOCK 2 UNITS/REFER TO PALLIATIVE CARE FOR MED MANAGE/2 UNITS SCAR NEUROMA INJECTION--1 WEEK APART ELECTRONICALLY SIGNED BY ISIDRO HICKMAN MD, MD ON 07/11/2019 AT 05:32 PM EDT DISCLAIMER : THIS IS A VISIT SUMMARY EXTRACTED FROM THE [email or web address] CHART. IT IS NOT A COPY OF THE [email or web address] PROGRESS NOTE. MTDD
== END ==
LOC: M PAIN 09:30
PROVIDERS: ATTEND Anesthesiology
DX: G57.91 Unspecified mononeuropathy of right lower limb (principal); G57.92 Unspecified mononeuropathy of left lower limb; R10.9 Unspecified abdominal pain; G89.29 Other chronic pain; D36.15 Benign neoplasm of peripheral nerves and autonomic nervous system of abdomen; Z98.890 Other specified postprocedural states; Z86.59 Personal history of other mental and behavioral disorders; G43.909 Migraine, unspecified, not intractable, without status migrainosus; F17.210 Nicotine dependence, cigarettes, uncomplicated; Z79.899 Other long term (current) drug therapy

== ENCOUNTER 2019-09-28 18:31 | Emergency (ER) | payer OTHER ==
[~2019-09-28] VITALS: Ht 180.3 cm; Wt 99.5 kg
[2019-09-28] MEDS ORDERED: GABA-845 PO (18:45)
[2019-09-28] MEDS ORDERED: CYMB1CAP5 PO (18:45)
[2019-09-28] MEDS ORDERED: ENDO5TAB PO (18:45)
[2019-09-28 20:23] LABS: INFLUENZA A AMPLIFICATION NEGATIVE (NEGATIVE); INFLUENZA B AMPLIFICATION NEGATIVE (NEGATIVE)
[2019-09-28 21:05] VITALS: BP 115/78
[2019-09-28] MEDS ORDERED: BENZ200C70 PO (21:11)
[2019-09-28] MEDS ORDERED: AFRI0.058 (21:11)
[2019-09-28] MEDS ORDERED: ALL10TAB2 PO (21:11)
[2019-09-28] MEDS ORDERED: BENZONATATE 100 MG CAP PO ONE (21:15)
--- NOTE | 2019-09-29 08:19 | REP ---
Clinical: Acute cough . Comparison: None . Technique: PA and lateral. Findings: The mediastinum and cardiac silhouette are normal. The lung espino are clear and without acute consolidation, effusion, or pneumothorax. The skeletal structures are intact and normal. Impression: 1. No acute cardiopulmonary process. Electronically Signed by Woody Berry MD 09/29/2019 08:11 A
== END 2019-09-28 21:21 | disposition home or self-care (01) ==
LOC: M ED 18:31
DX: J06.9 Acute upper respiratory infection, unspecified (principal); Z86.69 Personal history of other diseases of the nervous system and sense organs; F17.210 Nicotine dependence, cigarettes, uncomplicated; Z79.899 Other long term (current) drug therapy

== ENCOUNTER → 2019-11-11 | Outpatient (CLI) | payer OTHER ==
[~2019-11-11] MED LIST changes: +AFRI0.058; +ALL10TAB2 PO; +BENZ200C70 PO; +BUPIVACAINE HCL 0.25% 30 ML VIAL As Ordered ONE; +CYMB1CAP5 PO; +ENDO5TAB PO; +GABA-845 PO; +ISOVUE-M 300 61% 15ML VIAL (Q9967) As Ordered ONE; +LIDOCAINE 1% SDV INJ 30 ML VIAL As Ordered ONE; +TRIAMCINOLONE ACETONIDE SUSP 40 MG/ML VIAL (J3301) As Ordered ONE; +diazePAM 2 MG TAB As Ordered ONE; +oxyCODONE 5MG TAB As Ordered ONE
--- NOTE | 2019-11-19 04:52 | ECWPNPC ---
PATIENT NAME: HELENE SILVERMAN : 1985 GENDER: MALE VISIT DATE: 11/11/2019 DISCHARGE DATE: 11/11/19 1035 VISIT LOCKED DATE TIME: PHYSICIAN: ISIDRO HICKMAN MD RESOURCE: ISIDRO HICKMAN MD REASON FOR APPOINTMENT 1. ILAT ILEO INGUINAL NB-[address] Baltazar, HISTORY OF PRESENT ILLNESS HISTORY OF PRESENT ILLNESS: PAIN THE PATIENT DESCRIBES THE PAIN... FALL RISK SCREENING: SCREENING :NO FALLS REPORTED IN THE LAST YEAR CURRENT MEDICATIONS TAKING ACETAMINOPHEN 500 MG TABLET 2 TABLETS NEEDED ORALLY 3 TIMES A DAY, NOTES: 11/10/19@1700 TAKING OXYCODONE HCL 10 MG TABLET 1 TABLET NEEDED ORALLY EVERY 6 HRS, NOTES: 11/10/18@1999 TAKING NORTRIPTYLINE HCL 10 MG CAPSULE 2 CAPSULE ORALLY BID, NOTES: 11/10/18 TAKING GABAPENTIN 300 MG CAPSULE 2 TABLET ORALLY BEFORE BEDTIME, NOTES: 11/10/19@1999 DISCONTINUED AMOXICILLIN 875 MG TABLET 1 TABLET ORALLY EVERY 12 HRS MEDICATION LIST REVIEWED AND RECONCILED WITH THE PATIENT PAST MEDICAL HISTORY ABDOMINAL PAIN BACK PAIN PTSD MIGRAINES ALLERGIES N.K.D.A. SURGICAL HISTORY INTUSUSSEPTION 2007 BILATERAL INGUINAL HERNIA REPAIR WITH MESH 01/2010 INCISIONAL HERNIA REPAIR 12/2018 APPENDECTOMY 03/2019 FAMILY HISTORY FATHER: ALIVE 60 YRS, DEGENERATIVE JOINT DISEASE MOTHER: ALIVE 60 YRS, DEGENERATIVE JOINT DISEASE SIBLINGS: ALIVE 40 YRS SON(S): ALIVE 10 YRS MATERNAL GRAND MOTHER: , ALZHEIMER'S 1 SISTER(S) - HEALTHY. 1 SON(S) . SOCIAL HISTORY GENERAL: TOBACCO USE ARE YOU A:CURRENT SMOKER ARE YOU INTERESTED IN QUITTING?NOT READY TO QUIT COUNSELED THE PATIENT ON SMOKING EFFECTS, EDUCATION [id number]/02/2020 PATIENT COUNSELED ON THE DANGERS OF TOBACCO USE AND URGED TO QUIT:11/06/2019 VAPORNO E-CIGARETTENO OTHERS AT HOME: YES. HOUSING: HOUSE WITH STAIRS. EDUCATION LEVEL OF EDUCATION:NOT FINISHED COLLEGE DIET: REGULAR. LANGUAGE LANGUAGES SPOKEN:ISRAELI RECREATIONAL DRUG USE DRUG USE? PAST USE OF MARIJUANA. NONE IN PAST 15 YEARS. EXERCISE: NO REGULAR EXERCISE. LEARNING BARRIERS / SPECIAL NEEDS CHANGE FROM LAST VISIT?YES BARRIERS TO LEARNING?NO HEARING IMPAIRED?YES TINNITIS VISION IMPAIRED?NO COGNITIVELY IMPAIRED?NO READINESS TO LEARN?YES LEARNING PREFERENCES?NO LEARNING CAPABILITIES PRESENT?YES EMOTIONAL BARRIERS?NO SPECIAL DEVICES?YES :CANE RARELY IF NEEDED. PRINTING TABLE HAND NEEDED?NO PAIN CLINIC PFS, CLERGY, PUBLIC HEALTH REFERRALS HAS THE PATIENT BEEN EDUCATED REGARDING HIS/HER PLAN OF CARE?YES HAS THE PATIENT BEEN EDUCATED REGARDING PAIN, THE RISK FOR PAIN, THE IMPORTANCE OF EFFECTIVE PAIN MANAGEMENT, AND THE PAIN ASSESSMENT PROCESS?YES LATEX QUESTIONNAIRE LATEX ALLERGY : HAVE YOU EVER DEVELOPED ANY TYPE OF REACTION AFTER HANDLING LATEX PRODUCTS SUCH RUBBER GLOVES, CONDOMS, DIAPHRAGMS, BALLOONS, SOCKS, OR UNDERWEAR?NO LATEX ALLERGY : HAVE YOU EVER DEVELOPED ANY TYPE OF REACTION DURING OR AFTER DENTAL APPOINTMENT, VAGINAL/RECTAL EXAMINATION, SURGICAL PROCEDURE, OR ANY OTHER EXPOSURE?NO LATEX RISK : HAVE YOU EVER HAD ANY DIFFICULTY BREATHING OR HIVES AFTER EATING OR HANDLING ANY FRUITS, OR VEGETABLES; SUCH KIWI, BANANAS, STONE FRUITS, OR CHESTNUTSNO LATEX RISK : DO YOU HAVE A PREVIOUS PERSONAL HISTORY OF MORE THAN NINE SURGERIES, SPINA BIFIDA, OR REPEATED CATHERIZATIONS? NO LATEX RISK : ARE YOU FREQUENTLY EXPOSED TO LATEX PRODUCTS IN YOUR OCCUPATION?YES DATE ASKED : 11/06/2019 CAFFEINE CAFFEINE USE?YES MOUNTAIN DEW 60 OZ PER DAY ADVANCE DIRECTIVE ADVANCE DIRECTIVE DISCUSSED WITH PATIENT:YES 11/06/2019 INFORMATION OFFERED AND DECLINED. JS [facility] [id number] SIKHISM MARITAL STATUS: . ALCOHOL SCREENING DID YOU HAVE A DRINK CONTAINING ALCOHOL IN THE PAST YEAR?YES HOW OFTEN DID YOU HAVE SIX OR MORE DRINKS ON ONE OCCASION IN THE PAST YEAR?NEVER (0 POINTS) HOW MANY DRINKS DID YOU HAVE ON A TYPICAL DAY WHEN YOU WERE DRINKING IN THE PAST YEAR?1 OR 2 (0 POINTS) HOW OFTEN DID YOU HAVE A DRINK CONTAINING ALCOHOL IN THE PAST YEAR?MONTHLY OR LESS (1 POINT) POINTS1 INTERPRETATIONNEGATIVE OCCUPATION: [employer]. PRE-SCREENING COMPLETED 11/06/2019 1630 JS. HOSPITALIZATION/MAJOR DIAGNOSTIC PROCEDURE SURGERY 03/2019 MIGRAINE / MINI STROKE? 1999 REVIEW OF SYSTEMS REVIEWED BY: PROVIDER: . CONSTITUTIONAL: ANY CHANGE IN YOUR MEDICAL CONDITION? NO . CHILLS NO . FEVER NO . INFECTION: DO YOU HAVE NEW INFECTIONS? NO . DO YOU HAVE HISTORY OF MRSA? NO . MUSCULOSKELETAL: ANY NEW PATTERNS OF PAIN OR NUMBNESS? NO . GASTROENTEROLOGY: ANY NEW CHANGE IN BOWEL CONTROL? NO . GENITOURINARY: ANY NEW CHANGE IN BLADDER CONTROL? NO . IS THERE A CHANCE YOU COULD BE ? NO . HEMATOLOGY/LYMPH: DO YOU TAKE ANY BLOOD THINNERS? (FOR EXAMPLE- COUMADIN, PLAVIX, AGGRENOX, PLATEL, PRADAXA, OR XARELTO) NO . WHEN WAS YOUR LAST DOSE? DATE: TIME: . NEUROLOGY: HAVE YOU FALLEN IN THE PAST 12 MONTHS? YES . ANY NEW EXTREMITY NUMBNESS OR WEAKNESS? YES . CARDIOLOGY: DO YOU HAVE A PACEMAKER OR DEFIBRILLATOR? NO . RESPIRATORY: HAVE YOU BEEN SICK IN THE PAST WEEK? NO . FEVER NO . FLU LIKE SYMPTOMS? NO . COUGH NO . INTEGUMENTARY: DO YOU HAVE ANY RASHES OR OPEN SORES? NO . ALLERGIC/IMMUNO: ARE YOU ALLERGIC TO IV DYE? NO . ANY NEW ALLERGIES? NO . PSYCHIATRIC: DO YOU HAVE THOUGHTS OF HURTING YOURSELF OR SOMEONE ELSE? NO . ARE YOU ABUSED, NEGLECTED, OR IN AN UNSAFE ENVIRONMENT? NO . ENDOCRINOLOGY: ARE YOU DIABETIC? NO . OTHER: DO YOU NEED ANY PRESCRIPTIONS? NO . IF YES, PLEASE LIST: ____ . ANY NEW PROBLEMS WITH YOUR MEDICATIONS? NO . WHEN DID YOU LAST EAT? ____11/10/19 . WHEN DID YOU LAST DRINK? ____11/10/19 . WHAT DID YOU LAST DRINK? ____WATER . NAME OF PERSON DRIVING YOU HOME? ____DANE DEL TORO . DO YOU HAVE ANY OTHER QUESTIONS OR CONCERNS NO . VITAL SIGNS WT 199 LBS, HT 71 IN, BMI 27.75 INDEX, BP 117/80 MM HG, HR 85 /MIN, RR 18 /MIN, TEMP 97.5 F, OXYGEN SAT % 98, SAFE IN ENV? (Y/N) YES, REVIEWED BY: LEAH. 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 I REVIEWED THE CHART AND DISCUSSED THE CASE WITH THE PATIENT. AFTER DISCUSSING RISK, ALTERNATIVES AND BENEFITS WE HAVE AGREED ON PROCEEDING WITH THE BLOCK TODAY. THE PATIENT AGREES.PROCEDURE NOTE: AFTER CONSENT WAS SIGNED THE PATIENT WAS TAKEN TO THE PROCEDURE ROOM AND PLACE IN THE SUPINE POSITION. THE RIGHT INGUINAL AREA WAS CLEAN WITH CHLORAPREP SOLUTION AND DRAPED ASEPTICALLY. THE PROCEDURE WAS DONE UNDER STERILE STANDARD TECHNIQUES. THE RIGHT SUPERIOR ANTERIOR ILIAC SPINE WAS PALPATED. THE ENTRY POINT WAS SELECTED 1 INCH MEDIAL AND CAUDAL. THEN USING A NERVE STIMULATOR APPROPRIATE STIMULATION OF THE NERVE WAS INDUCED PER PATIENTS FEEDBACK FIRST AT 2.0 VOLTS AND THEN AT 0.8 VOLTS. THERE WAS NO EVIDENCE OF BLOOD, PARESTHESIA OR VISCERAL PUNCTURE. THEN A SOLUTION OF 15 CC OF BUPIVACAINE 0.125% AND KENALOG 40 MGS WAS INJECTED SLOWLY APPROXIMATELY 0.5 INCHES DEEP AND WITH THE ASSISTANCE OF THE NERVE STIMULATOR DESCRIBED ABOVE. THE PATIENT TOLERATED THE PROCEDURE WITHOUT COMPLICATIONS AND WAS SENT TO THE RECOVERY ROOM. POST-PROCEDURE NOTE: I WILL SEE THE PATIENT IN A FOLLOW UP IN THE NEXT FEW WEEKS. WE ARE LOOKING FOR LONG LASTING PAIN RELIEVE WITH THIS INTERVENTION. INSTRUCTIONS WERE GIVEN QUESTIONS WERE ANSWERED AND THE PATIENT REPORTS UNDERSTANDING AND AGREES. I, HOMER HERNANDEZ, DOCUMENTED THE ABOVE INFORMATION ACTING A SCRIBE FOR DR. HICKMAN. I HAVE REVIEWED THE ABOVE DOCUMENT, WRITTEN BY HOMER HERNANDEZ SCRIBDerick AND I VERIFY THAT IT IS ACCURATE. PROCEDURE CODES 51653 N BLOCK INJ ILIO-ING/HYPOGI, MODIFIERS: RT DISPOSITION & COMMUNICATION FOLLOW UP 3 WEEKS ELECTRONICALLY SIGNED BY ISIDRO HICKMAN MD, MD ON 11/18/2019 AT 10:16 AM EST DISCLAIMER : THIS IS A VISIT SUMMARY EXTRACTED FROM THE [employer] CHART. IT IS NOT A COPY OF THE [employer] PROGRESS NOTE. LONNY
== END ==
LOC: M PAIN 08:45
PROVIDERS: ATTEND Anesthesiology
DX: G57.91 Unspecified mononeuropathy of right lower limb (principal); Z86.59 Personal history of other mental and behavioral disorders; G43.909 Migraine, unspecified, not intractable, without status migrainosus; F17.210 Nicotine dependence, cigarettes, uncomplicated; Z79.899 Other long term (current) drug therapy
CPT/HCPCS: 64425; J3301; Q9967

== ENCOUNTER → 2019-11-25 | Outpatient (CLI) | payer OTHER ==
[~2019-11-25] MED LIST changes: -BUPIVACAINE HCL 0.25% 30 ML VIAL As Ordered ONE; -ISOVUE-M 300 61% 15ML VIAL (Q9967) As Ordered ONE; -LIDOCAINE 1% SDV INJ 30 ML VIAL As Ordered ONE; -TRIAMCINOLONE ACETONIDE SUSP 40 MG/ML VIAL (J3301) As Ordered ONE; -diazePAM 2 MG TAB As Ordered ONE; -oxyCODONE 5MG TAB As Ordered ONE
--- NOTE | 2019-11-27 01:54 | ECWPNPC ---
PATIENT NAME: HELENE SILVERMAN : 1985 GENDER: MALE VISIT DATE: 11/25/2019 DISCHARGE DATE: 11/25/19 1435 VISIT LOCKED DATE TIME: PHYSICIAN: DOUGLAS ALBERTO RESOURCE: DOUGLAS ALBERTO REASON FOR APPOINTMENT 1. POST PROCEDURE HISTORY OF PRESENT ILLNESS HISTORY OF PRESENT ILLNESS: PAIN THE PATIENT DESCRIBES THE PAIN... 33-YEAR-OLD MALE IN FOR ILIOINGUINAL NERVE BLOCK FOLLOW-UP. HE RATES HIS PAIN PREPROCEDURE AT A 3 OUT OF 10 AND POSTPROCEDURE AT A 0 OUT OF 10X5 DAYS. HE RATES PAIN CURRENTLY AT A 3 OUT OF 10 AND DESCRIBES IT BURNING, SHARP, STABBING, AND SHOOTING. FALL RISK SCREENING: SCREENING :NO FALLS REPORTED IN THE LAST YEAR CURRENT MEDICATIONS TAKING ACETAMINOPHEN 500 MG TABLET 2 TABLETS NEEDED ORALLY 3 TIMES A DAY TAKING OXYCODONE HCL 10 MG TABLET 1 TABLET NEEDED ORALLY EVERY 6 HRS TAKING NORTRIPTYLINE HCL 10 MG CAPSULE 2 CAPSULE ORALLY BID TAKING GABAPENTIN 300 MG CAPSULE 2 TABLET ORALLY BEFORE BEDTIME MEDICATION LIST REVIEWED AND RECONCILED WITH THE PATIENT PAST MEDICAL HISTORY ABDOMINAL PAIN BACK PAIN PTSD MIGRAINES ALLERGIES N.K.D.A. SURGICAL HISTORY INTUSUSSEPTION 2007 BILATERAL INGUINAL HERNIA REPAIR WITH MESH 01/2010 INCISIONAL HERNIA REPAIR 12/2018 APPENDECTOMY 03/2019 FAMILY HISTORY FATHER: ALIVE 60 YRS, DEGENERATIVE JOINT DISEASE MOTHER: ALIVE 60 YRS, DEGENERATIVE JOINT DISEASE SIBLINGS: ALIVE 40 YRS SON(S): ALIVE 10 YRS MATERNAL GRAND MOTHER: , ALZHEIMER'S 1 SISTER(S) - HEALTHY. 1 SON(S) . SOCIAL HISTORY GENERAL: TOBACCO USE ARE YOU A:CURRENT SMOKER ARE YOU INTERESTED IN QUITTING?NOT READY TO QUIT COUNSELED THE PATIENT ON SMOKING EFFECTS, EDUCATION [id number]/21/2020 PATIENT COUNSELED ON THE DANGERS OF TOBACCO USE AND URGED TO QUIT:11/06/2019 VAPORNO E-CIGARETTENO OTHERS AT HOME: YES. HOUSING: HOUSE WITH STAIRS. EDUCATION LEVEL OF EDUCATION:NOT FINISHED COLLEGE DIET: REGULAR. LANGUAGE LANGUAGES SPOKEN:BRAZILIAN RECREATIONAL DRUG USE DRUG USE? PAST USE OF MARIJUANA. NONE IN PAST 15 YEARS. EXERCISE: NO REGULAR EXERCISE. LEARNING BARRIERS / SPECIAL NEEDS CHANGE FROM LAST VISIT?YES BARRIERS TO LEARNING?NO HEARING IMPAIRED?YES TINNITIS VISION IMPAIRED?NO COGNITIVELY IMPAIRED?NO READINESS TO LEARN?YES LEARNING PREFERENCES?NO LEARNING CAPABILITIES PRESENT?YES EMOTIONAL BARRIERS?NO SPECIAL DEVICES?YES :CANE RARELY IF NEEDED. HYDRODYNAMICS TEACHER NEEDED?NO PAIN CLINIC PFS, CLERGY, PUBLIC HEALTH REFERRALS HAS THE PATIENT BEEN EDUCATED REGARDING HIS/HER PLAN OF CARE?YES HAS THE PATIENT BEEN EDUCATED REGARDING PAIN, THE RISK FOR PAIN, THE IMPORTANCE OF EFFECTIVE PAIN MANAGEMENT, AND THE PAIN ASSESSMENT PROCESS?YES LATEX QUESTIONNAIRE LATEX ALLERGY : HAVE YOU EVER DEVELOPED ANY TYPE OF REACTION AFTER HANDLING LATEX PRODUCTS SUCH RUBBER GLOVES, CONDOMS, DIAPHRAGMS, BALLOONS, SOCKS, OR UNDERWEAR?NO LATEX ALLERGY : HAVE YOU EVER DEVELOPED ANY TYPE OF REACTION DURING OR AFTER DENTAL APPOINTMENT, VAGINAL/RECTAL EXAMINATION, SURGICAL PROCEDURE, OR ANY OTHER EXPOSURE?NO DATE ASKED : 11/06/2019 LATEX RISK : HAVE YOU EVER HAD ANY DIFFICULTY BREATHING OR HIVES AFTER EATING OR HANDLING ANY FRUITS, OR VEGETABLES; SUCH KIWI, BANANAS, STONE FRUITS, OR CHESTNUTSNO LATEX RISK : DO YOU HAVE A PREVIOUS PERSONAL HISTORY OF MORE THAN NINE SURGERIES, SPINA BIFIDA, OR REPEATED CATHERIZATIONS? NO LATEX RISK : ARE YOU FREQUENTLY EXPOSED TO LATEX PRODUCTS IN YOUR OCCUPATION?YES CAFFEINE CAFFEINE USE?YES MOUNTAIN DEW 60 OZ PER DAY ADVANCE DIRECTIVE ADVANCE DIRECTIVE DISCUSSED WITH PATIENT:YES 11/25/2019 INFORMATION OFFERED AND DECLINED. CONGREGATIONAL [id number] MANDAEISM MARITAL STATUS: . ALCOHOL SCREENING DID YOU HAVE A DRINK CONTAINING ALCOHOL IN THE PAST YEAR?YES HOW OFTEN DID YOU HAVE SIX OR MORE DRINKS ON ONE OCCASION IN THE PAST YEAR?NEVER (0 POINTS) HOW MANY DRINKS DID YOU HAVE ON A TYPICAL DAY WHEN YOU WERE DRINKING IN THE PAST YEAR?1 OR 2 (0 POINTS) HOW OFTEN DID YOU HAVE A DRINK CONTAINING ALCOHOL IN THE PAST YEAR?MONTHLY OR LESS (1 POINT) POINTS1 INTERPRETATIONNEGATIVE OCCUPATION: [employer]. PRE-SCREENING COMPLETED 11/06/2019 1630 JS. HOSPITALIZATION/MAJOR DIAGNOSTIC PROCEDURE SURGERY 03/2019 MIGRAINE / MINI STROKE? 1999 REVIEW OF SYSTEMS REVIEWED BY: PROVIDER: KATERINA SORIANO . CONSTITUTIONAL: ANY CHANGE IN YOUR MEDICAL CONDITION? NO . CHILLS NO . FEVER NO . INFECTION: DO YOU HAVE NEW INFECTIONS? NO . DO YOU HAVE HISTORY OF MRSA? NO . MUSCULOSKELETAL: ANY NEW PATTERNS OF PAIN OR NUMBNESS? NO . GASTROENTEROLOGY: ANY NEW CHANGE IN BOWEL CONTROL? NO . GENITOURINARY: ANY NEW CHANGE IN BLADDER CONTROL? NO . IS THERE A CHANCE YOU COULD BE ? NO . HEMATOLOGY/LYMPH: DO YOU TAKE ANY BLOOD THINNERS? (FOR EXAMPLE- COUMADIN, PLAVIX, AGGRENOX, PLATEL, PRADAXA, OR XARELTO) NO . WHEN WAS YOUR LAST DOSE? DATE: TIME: . NEUROLOGY: HAVE YOU FALLEN IN THE PAST 12 MONTHS? YES, PRIOR TO LAST VISIT . ANY NEW EXTREMITY NUMBNESS OR WEAKNESS? NO . CARDIOLOGY: DO YOU HAVE A PACEMAKER OR DEFIBRILLATOR? NO . RESPIRATORY: HAVE YOU BEEN SICK IN THE PAST WEEK? NO . FEVER NO . FLU LIKE SYMPTOMS? NO . COUGH NO . INTEGUMENTARY: DO YOU HAVE ANY RASHES OR OPEN SORES? NO . ALLERGIC/IMMUNO: ARE YOU ALLERGIC TO IV DYE? NO . ANY NEW ALLERGIES? NO . PSYCHIATRIC: DO YOU HAVE THOUGHTS OF HURTING YOURSELF OR SOMEONE ELSE? NO . ARE YOU ABUSED, NEGLECTED, OR IN AN UNSAFE ENVIRONMENT? NO . ENDOCRINOLOGY: ARE YOU DIABETIC? NO . OTHER: DO YOU NEED ANY PRESCRIPTIONS? NO . IF YES, PLEASE LIST: ____ . ANY NEW PROBLEMS WITH YOUR MEDICATIONS? NO . WHEN DID YOU LAST EAT? ____ . WHEN DID YOU LAST DRINK? ____ . WHAT DID YOU LAST DRINK? ____ . NAME OF PERSON DRIVING YOU HOME? ____ . DO YOU HAVE ANY OTHER QUESTIONS OR CONCERNS NO . VITAL SIGNS WT 198.4 LBS, HT 71 IN, BMI 27.67 INDEX, BP 138/89 MM HG, HR 90 /MIN, RR 18 /MIN, TEMP 98.6 F, OXYGEN SAT % 97%, NA INITIALS AW 1404, REVIEWED BY: EM. EXAMINATION GENERAL EXAMINATION: GENERALNO ACUTE DISTRESS, WELL NOURISHED AND HYDRATED. PSYCHAPPROPRIATE MOOD AND AFFECT . LUNGS:CLEAR TO AUSCULTATION BILATERALLY, NO WHEEZES, RHONCHI, RALES. HEART:NO MURMURS, REGULAR RATE AND RHYTHM. 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 GIVEN PRESENTING SYMPTOMS AND RESULTS OF PHYSICAL EXAMINATION INFORMED PATIENT THAT I WOULD DISCUSS THIS CASE WITH DR. HICKMAN AND WE WOULD PERFORM A PLAN FROM THERE. DISCUSSED CASE WITH DR. HICKMAN AND A REPEAT ILIOINGUINAL NERVE BLOCK WAS RECOMMENDED. WILL DISCUSS WITH PATIENT TO SEE IF HE WISHES TO PROCEED WITH PROCEDURE. PATIENT HAS EXPRESSED UNDERSTANDING OF AND WAS IN AGREEMENT WITH TREATMENT PLAN. GIVEN TIME TO ASK QUESTIONS AND EXPRESS CONCERNS.. PROCEDURE CODES FA211 ESTABILISHED PATIENT [facility] CHARGE DISPOSITION & COMMUNICATION FOLLOW UP 4 WEEKS (REASON: ILIOINGUINAL NEURALGIA) ELECTRONICALLY SIGNED BY KARMA LOVELACE ON 11/26/2019 AT 11:44 AM EST DISCLAIMER : THIS IS A VISIT SUMMARY EXTRACTED FROM THE [employer] CHART. IT IS NOT A COPY OF THE [employer] PROGRESS NOTE. LONNY
== END ==
LOC: M PAIN 14:00
PROVIDERS: ATTEND Family Medicine
DX: G57.91 Unspecified mononeuropathy of right lower limb (principal); Z86.59 Personal history of other mental and behavioral disorders; G43.909 Migraine, unspecified, not intractable, without status migrainosus; F17.210 Nicotine dependence, cigarettes, uncomplicated; Z79.899 Other long term (current) drug therapy

== ENCOUNTER → 2020-01-12 | Outpatient (CLI) | payer OTHER ==
[~2020-01-12] MED LIST changes: +CYCL-707 PO; -CYCL10TA PO
--- NOTE | 2020-01-14 01:29 | ECWPNPC ---
PATIENT NAME: HELENE SILVERMAN : 1985 GENDER: MALE VISIT DATE: 01/12/2020 DISCHARGE DATE: 01/12/20 1341 VISIT LOCKED DATE TIME: PHYSICIAN: DOUGLAS ALBERTO RESOURCE: DOUGLAS ALBERTO REASON FOR APPOINTMENT 1. F3-4 WEEK FOLLOW UP. HISTORY OF PRESENT ILLNESS HISTORY OF PRESENT ILLNESS: PAIN THE PATIENT DESCRIBES THE PAIN... 34-YEAR-OLD MALE IN FOR CHRONIC PAIN FOLLOW-UP. HE RATES HIS PAIN CURRENTLY AT A 6 OUT OF 10 AND DESCRIBES IT SHARP, BURNING, SHOOTING, AND CONTINUOUS AT LAST CLINIC VISIT INFORMED PATIENT I WOULD DISCUSS CASE WITH DR. HICKMAN AND IT WAS DECIDED A REPEAT ILIOINGUINAL NERVE BLOCK WAS APPROPRIATE. FALL RISK SCREENING: SCREENING :NO FALLS REPORTED IN THE LAST YEAR CURRENT MEDICATIONS TAKING ACETAMINOPHEN 500 MG TABLET 2 TABLETS NEEDED ORALLY 3 TIMES A DAY TAKING OXYCODONE HCL 10 MG TABLET 1 TABLET NEEDED ORALLY EVERY 6 HRS TAKING NORTRIPTYLINE HCL 10 MG CAPSULE 2 CAPSULE ORALLY BID TAKING GABAPENTIN 300 MG CAPSULE 2 TABLET ORALLY BEFORE BEDTIME MEDICATION LIST REVIEWED AND RECONCILED WITH THE PATIENT PAST MEDICAL HISTORY ABDOMINAL PAIN BACK PAIN PTSD MIGRAINES ALLERGIES N.K.D.A. SURGICAL HISTORY INTUSUSSEPTION 2007 BILATERAL INGUINAL HERNIA REPAIR WITH MESH 01/2010 INCISIONAL HERNIA REPAIR 12/2018 APPENDECTOMY 03/2019 FAMILY HISTORY FATHER: ALIVE 60 YRS, DEGENERATIVE JOINT DISEASE MOTHER: ALIVE 60 YRS, DEGENERATIVE JOINT DISEASE SIBLINGS: ALIVE 40 YRS SON(S): ALIVE 10 YRS MATERNAL GRAND MOTHER: , ALZHEIMER'S 1 SISTER(S) - HEALTHY. 1 SON(S) . SOCIAL HISTORY GENERAL: TOBACCO USE ARE YOU A:CURRENT SMOKER ARE YOU INTERESTED IN QUITTING?NOT READY TO QUIT COUNSELED THE PATIENT ON SMOKING EFFECTS, EDUCATION [id number]/2020 PATIENT COUNSELED ON THE DANGERS OF TOBACCO USE AND URGED TO QUIT:11/06/2019 VAPORNO E-CIGARETTENO OTHERS AT HOME: YES. HOUSING: HOUSE WITH STAIRS. EDUCATION LEVEL OF EDUCATION:NOT FINISHED COLLEGE DIET: REGULAR. LANGUAGE LANGUAGES SPOKEN:ST HELENIAN RECREATIONAL DRUG USE DRUG USE? PAST USE OF MARIJUANA. NONE IN PAST 15 YEARS. EXERCISE: NO REGULAR EXERCISE. LEARNING BARRIERS / SPECIAL NEEDS CHANGE FROM LAST VISIT?YES BARRIERS TO LEARNING?NO HEARING IMPAIRED?YES TINNITIS VISION IMPAIRED?NO COGNITIVELY IMPAIRED?NO READINESS TO LEARN?YES LEARNING PREFERENCES?NO LEARNING CAPABILITIES PRESENT?YES EMOTIONAL BARRIERS?NO SPECIAL DEVICES?YES :CANE RARELY IF NEEDED. EXCHANGE ARCHITECT NEEDED?NO PAIN CLINIC PFS, CLERGY, PUBLIC HEALTH REFERRALS HAS THE PATIENT BEEN EDUCATED REGARDING HIS/HER PLAN OF CARE?YES HAS THE PATIENT BEEN EDUCATED REGARDING PAIN, THE RISK FOR PAIN, THE IMPORTANCE OF EFFECTIVE PAIN MANAGEMENT, AND THE PAIN ASSESSMENT PROCESS?YES LATEX QUESTIONNAIRE LATEX ALLERGY : HAVE YOU EVER DEVELOPED ANY TYPE OF REACTION AFTER HANDLING LATEX PRODUCTS SUCH RUBBER GLOVES, CONDOMS, DIAPHRAGMS, BALLOONS, SOCKS, OR UNDERWEAR?NO LATEX ALLERGY : HAVE YOU EVER DEVELOPED ANY TYPE OF REACTION DURING OR AFTER DENTAL APPOINTMENT, VAGINAL/RECTAL EXAMINATION, SURGICAL PROCEDURE, OR ANY OTHER EXPOSURE?NO DATE ASKED : 11/06/2019 LATEX RISK : HAVE YOU EVER HAD ANY DIFFICULTY BREATHING OR HIVES AFTER EATING OR HANDLING ANY FRUITS, OR VEGETABLES; SUCH KIWI, BANANAS, STONE FRUITS, OR CHESTNUTSNO LATEX RISK : DO YOU HAVE A PREVIOUS PERSONAL HISTORY OF MORE THAN NINE SURGERIES, SPINA BIFIDA, OR REPEATED CATHERIZATIONS? NO LATEX RISK : ARE YOU FREQUENTLY EXPOSED TO LATEX PRODUCTS IN YOUR OCCUPATION?YES CAFFEINE CAFFEINE USE?YES MOUNTAIN DEW 60 OZ PER DAY ADVANCE DIRECTIVE ADVANCE DIRECTIVE DISCUSSED WITH PATIENT:YES INFORMATION OFFERED AND DECLINED. CONGREGATIONAL [id number] FAITH MARITAL STATUS: . ALCOHOL SCREENING DID YOU HAVE A DRINK CONTAINING ALCOHOL IN THE PAST YEAR?YES HOW OFTEN DID YOU HAVE SIX OR MORE DRINKS ON ONE OCCASION IN THE PAST YEAR?NEVER (0 POINTS) HOW MANY DRINKS DID YOU HAVE ON A TYPICAL DAY WHEN YOU WERE DRINKING IN THE PAST YEAR?1 OR 2 (0 POINTS) HOW OFTEN DID YOU HAVE A DRINK CONTAINING ALCOHOL IN THE PAST YEAR?MONTHLY OR LESS (1 POINT) POINTS1 INTERPRETATIONNEGATIVE OCCUPATION: [employer]. PRE-SCREENING COMPLETED 11/06/2019 1630 JS. HOSPITALIZATION/MAJOR DIAGNOSTIC PROCEDURE SURGERY 03/2019 MIGRAINE / MINI STROKE? 1999 REVIEW OF SYSTEMS REVIEWED BY: PROVIDER: KATERINA SORIANO . CONSTITUTIONAL: ANY CHANGE IN YOUR MEDICAL CONDITION? NO . CHILLS NO . FEVER NO . INFECTION: DO YOU HAVE NEW INFECTIONS? NO . DO YOU HAVE HISTORY OF MRSA? NO . MUSCULOSKELETAL: ANY NEW PATTERNS OF PAIN OR NUMBNESS? YES, WHILE SLEEPING RIGHT ARM GOES NUMB LEFT LEG CRAMPING . GASTROENTEROLOGY: ANY NEW CHANGE IN BOWEL CONTROL? NO . GENITOURINARY: ANY NEW CHANGE IN BLADDER CONTROL? NO . IS THERE A CHANCE YOU COULD BE ? NO . HEMATOLOGY/LYMPH: DO YOU TAKE ANY BLOOD THINNERS? (FOR EXAMPLE- COUMADIN, PLAVIX, AGGRENOX, PLATEL, PRADAXA, OR XARELTO) NO . WHEN WAS YOUR LAST DOSE? DATE: TIME: . NEUROLOGY: HAVE YOU FALLEN IN THE PAST 12 MONTHS? YES, FELL 2 WEEKS AGO FROM BACK WEAKNESS . ANY NEW EXTREMITY NUMBNESS OR WEAKNESS? YES, RIGHT ARM AND LEFT LEG . CARDIOLOGY: DO YOU HAVE A PACEMAKER OR DEFIBRILLATOR? NO . RESPIRATORY: HAVE YOU BEEN SICK IN THE PAST WEEK? NO . FEVER NO . FLU LIKE SYMPTOMS? NO . COUGH NO . INTEGUMENTARY: DO YOU HAVE ANY RASHES OR OPEN SORES? NO . ALLERGIC/IMMUNO: ARE YOU ALLERGIC TO IV DYE? NO . ANY NEW ALLERGIES? NO . PSYCHIATRIC: DO YOU HAVE THOUGHTS OF HURTING YOURSELF OR SOMEONE ELSE? NO . ARE YOU ABUSED, NEGLECTED, OR IN AN UNSAFE ENVIRONMENT? NO . ENDOCRINOLOGY: ARE YOU DIABETIC? NO . OTHER: DO YOU NEED ANY PRESCRIPTIONS? NO . IF YES, PLEASE LIST: ____ . ANY NEW PROBLEMS WITH YOUR MEDICATIONS? NO . WHEN DID YOU LAST EAT? ____ . WHEN DID YOU LAST DRINK? ____ . WHAT DID YOU LAST DRINK? ____ . NAME OF PERSON DRIVING YOU HOME? ____ . DO YOU HAVE ANY OTHER QUESTIONS OR CONCERNS NO . VITAL SIGNS WT 194 LBS, HT 71 IN, BMI 27.05 INDEX, BP 120/81 MM HG, HR 75 /MIN, RR 16 /MIN, TEMP 98.8 F, OXYGEN SAT % 100, SAFE IN ENV? (Y/N) Y, REVIEWED BY: EM. EXAMINATION GENERAL EXAMINATION: GENERALNO ACUTE DISTRESS, WELL NOURISHED AND HYDRATED. PSYCHAPPROPRIATE MOOD AND AFFECT . LUNGS:CLEAR TO AUSCULTATION BILATERALLY, NO WHEEZES, RHONCHI, RALES. HEART:NO MURMURS, REGULAR RATE AND RHYTHM. MUSCULOSKELETAL: DENIES POINT TENDERNESS.. 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 CLINICAL NOTES: 34-YEAR-OLD MALE IN FOR CHRONIC PAIN FOLLOW-UP. GIVEN PRESENTING SYMPTOMS AND RESULTS OF PHYSICAL EXAMINATION RECOMMENDED RIGHT ILIOINGUINAL NERVE BLOCK WITH POSTPROCEDURAL FOLLOW-UP. PATIENT HAS EXPRESSED UNDERSTANDING OF AND WAS IN AGREEMENT WITH TREATMENT PLAN. GIVEN TIME TO ASK QUESTIONS AND EXPRESS CONCERNS. PROCEDURE CODES FA211 ESTABILISHED PATIENT [facility] CHARGE DISPOSITION & COMMUNICATION FOLLOW UP POSTPROCEDURE (REASON: RIGHT ILIOINGUINAL NERVE BLOCK) ELECTRONICALLY SIGNED BY KARMA LOVELCAE ON 01/13/2020 AT 03:34 PM EDT DISCLAIMER : THIS IS A VISIT SUMMARY EXTRACTED FROM THE [facility] CHART. IT IS NOT A COPY OF THE [employer] PROGRESS NOTE. DONISD
== END ==
LOC: M PAIN 13:00
PROVIDERS: ATTEND Family Medicine
DX: G57.91 Unspecified mononeuropathy of right lower limb (principal); F17.210 Nicotine dependence, cigarettes, uncomplicated; Z79.891 Long term (current) use of opiate analgesic; Z79.899 Other long term (current) drug therapy

== ENCOUNTER → 2020-01-15 | Outpatient (CLI) | payer OTHER ==
[~2020-01-15] MED LIST changes: +BUPIVACAINE HCL 0.25% 30ML VIAL As Ordered ONE; +ISOVUE-M 300 61% 15ML VIAL (Q9967) As Ordered ONE; +LIDOCAINE 1% SDV INJ 30 ML VIAL As Ordered ONE; +TRIAMCINOLONE ACETONIDE SUSP 40 MG/ML VIAL (J3301) As Ordered ONE; +diazePAM 5 MG TAB As Ordered ONE; +oxyCODONE 5MG TAB As Ordered ONE
--- NOTE | 2020-01-27 03:20 | ECWPNPC ---
PATIENT NAME: HELENE SILVERMAN : 1985 GENDER: MALE VISIT DATE: 01/15/2020 DISCHARGE DATE: 01/15/20 1053 VISIT LOCKED DATE TIME: PHYSICIAN: ISIDRO HICKMAN MD RESOURCE: ISIDRO HICKMAN MD REASON FOR APPOINTMENT 1. RIGHT ILLIOINGUINAL NERVE BLOCK HISTORY OF PRESENT ILLNESS HISTORY OF PRESENT ILLNESS: PAIN THE PATIENT DESCRIBES THE PAIN... 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 SURGICAL HISTORY INTUSUSSEPTION 2007 BILATERAL INGUINAL HERNIA REPAIR WITH MESH 01/2010 INCISIONAL HERNIA REPAIR 12/2018 APPENDECTOMY 03/2019 FAMILY HISTORY FATHER: ALIVE 60 YRS, DEGENERATIVE JOINT DISEASE MOTHER: ALIVE 60 YRS, DEGENERATIVE JOINT DISEASE SIBLINGS: ALIVE 40 YRS SON(S): ALIVE 10 YRS MATERNAL GRAND MOTHER: , ALZHEIMER'S 1 SISTER(S) - HEALTHY. 1 SON(S) . SOCIAL HISTORY GENERAL: TOBACCO USE ARE YOU A:CURRENT SMOKER ARE YOU INTERESTED IN QUITTING?NOT READY TO QUIT COUNSELED THE PATIENT ON SMOKING EFFECTS, EDUCATION [id number]/12/2020 HOW MANY CIGARETTES A DAY DO YOU SMOKE?6-10 HOW SOON AFTER YOU WAKE UP DO YOU SMOKE YOUR FIRST CIGARETTE?31-60 MIN HOW OFTEN DO YOU SMOKE CIGARETTES?EVERY DAY PATIENT COUNSELED ON THE DANGERS OF TOBACCO USE AND URGED TO QUIT:01/15/2020 VAPORNO E-CIGARETTENO OTHERS AT HOME: YES. HOUSING: HOUSE WITH STAIRS. EDUCATION LEVEL OF EDUCATION:NOT FINISHED COLLEGE DIET: REGULAR. LANGUAGE LANGUAGES SPOKEN:FAROESE DOMESTIC VIOLENCE DO YOU FEEL SAFE IN YOUR ENVIRONMENT?YES RECREATIONAL DRUG USE DRUG USE? PAST USE OF MARIJUANA. NONE IN PAST 15 YEARS. EXERCISE: NO REGULAR EXERCISE. LEARNING BARRIERS / SPECIAL NEEDS CHANGE FROM LAST VISIT?YES BARRIERS TO LEARNING?NO HEARING IMPAIRED?YES TINNITIS VISION IMPAIRED?NO COGNITIVELY IMPAIRED?NO READINESS TO LEARN?YES LEARNING PREFERENCES?NO LEARNING CAPABILITIES PRESENT?YES EMOTIONAL BARRIERS?NO SPECIAL DEVICES?YES :CANE RARELY IF NEEDED. PEDORTHIST NEEDED?NO PAIN CLINIC PFS, CLERGY, PUBLIC HEALTH REFERRALS HAS THE PATIENT BEEN EDUCATED REGARDING HIS/HER PLAN OF CARE?YES HAS THE PATIENT BEEN EDUCATED REGARDING PAIN, THE RISK FOR PAIN, THE IMPORTANCE OF EFFECTIVE PAIN MANAGEMENT, AND THE PAIN ASSESSMENT PROCESS?YES LATEX QUESTIONNAIRE LATEX ALLERGY : HAVE YOU EVER DEVELOPED ANY TYPE OF REACTION AFTER HANDLING LATEX PRODUCTS SUCH RUBBER GLOVES, CONDOMS, DIAPHRAGMS, BALLOONS, SOCKS, OR UNDERWEAR?NO LATEX ALLERGY : HAVE YOU EVER DEVELOPED ANY TYPE OF REACTION DURING OR AFTER DENTAL APPOINTMENT, VAGINAL/RECTAL EXAMINATION, SURGICAL PROCEDURE, OR ANY OTHER EXPOSURE?NO LATEX RISK : HAVE YOU EVER HAD ANY DIFFICULTY BREATHING OR HIVES AFTER EATING OR HANDLING ANY FRUITS, OR VEGETABLES; SUCH KIWI, BANANAS, STONE FRUITS, OR CHESTNUTSNO LATEX RISK : DO YOU HAVE A PREVIOUS PERSONAL HISTORY OF MORE THAN NINE SURGERIES, SPINA BIFIDA, OR REPEATED CATHERIZATIONS? NO LATEX RISK : ARE YOU FREQUENTLY EXPOSED TO LATEX PRODUCTS IN YOUR OCCUPATION?YES DATE ASKED : 01/15/2020 CAFFEINE CAFFEINE USE?YES MOUNTAIN DEW 60 OZ PER DAY ADVANCE DIRECTIVE ADVANCE DIRECTIVE DISCUSSED WITH PATIENT:YES 01/15/2020 PT DOES NOT HAVE ANY ADVANCED DIRECTIVES AND HE DECLINES INFORMATION ON HCP AT THIS TIME. AD ISLAM [id number] TENRIISM MARITAL STATUS: . ALCOHOL SCREENING DID YOU HAVE A DRINK CONTAINING ALCOHOL IN THE PAST YEAR?YES HOW OFTEN DID YOU HAVE SIX OR MORE DRINKS ON ONE OCCASION IN THE PAST YEAR?NEVER (0 POINTS) HOW MANY DRINKS DID YOU HAVE ON A TYPICAL DAY WHEN YOU WERE DRINKING IN THE PAST YEAR?1 OR 2 (0 POINTS) HOW OFTEN DID YOU HAVE A DRINK CONTAINING ALCOHOL IN THE PAST YEAR?MONTHLY OR LESS (1 POINT) POINTS1 INTERPRETATIONNEGATIVE OCCUPATION: [employer]. PRE-SCREENING COMPLETED 11/06/2019 1630 JS. HOSPITALIZATION/MAJOR DIAGNOSTIC PROCEDURE SURGERY 03/2019 MIGRAINE /STROKE 1999 REVIEW OF SYSTEMS REVIEWED BY: PROVIDER: . CONSTITUTIONAL: ANY CHANGE IN YOUR MEDICAL CONDITION? NO . CHILLS NO . FEVER NO . INFECTION: DO YOU HAVE NEW INFECTIONS? NO . DO YOU HAVE HISTORY OF MRSA? NO . MUSCULOSKELETAL: ANY NEW PATTERNS OF PAIN OR NUMBNESS? NO . GASTROENTEROLOGY: ANY NEW CHANGE IN BOWEL CONTROL? NO . GENITOURINARY: ANY NEW CHANGE IN BLADDER CONTROL? NO . IS THERE A CHANCE YOU COULD BE ? NO . HEMATOLOGY/LYMPH: DO YOU TAKE ANY BLOOD THINNERS? (FOR EXAMPLE- COUMADIN, PLAVIX, AGGRENOX, PLATEL, PRADAXA, OR XARELTO) NO . WHEN WAS YOUR LAST DOSE? DATE: TIME: . NEUROLOGY: HAVE YOU FALLEN IN THE PAST 12 MONTHS? YES, X 2 HIS BACK GAVE OUT CAUSING HIM NOT TO HAVE FEELING IN HIS LEGS, 1ST TIME WAS EVALUATED IN ED, 2ND TIME HE WAS AT WORK AND HE JUST LET IT WEAR OFF. AD . ANY NEW EXTREMITY NUMBNESS OR WEAKNESS? YES, RIGHT ARM HAS BEEN GOING FOR THE PAST 3 WEEK WHEN HE SLEEPS EVEN WITHOUT PRESSURE ON THE ARM . CARDIOLOGY: DO YOU HAVE A PACEMAKER OR DEFIBRILLATOR? NO . RESPIRATORY: HAVE YOU BEEN SICK IN THE PAST WEEK? NO . FEVER NO . FLU LIKE SYMPTOMS? NO . COUGH NO . INTEGUMENTARY: DO YOU HAVE ANY RASHES OR OPEN SORES? NO . ALLERGIC/IMMUNO: ARE YOU ALLERGIC TO IV DYE? NO . ANY NEW ALLERGIES? NO . PSYCHIATRIC: DO YOU HAVE THOUGHTS OF HURTING YOURSELF OR SOMEONE ELSE? NO . ARE YOU ABUSED, NEGLECTED, OR IN AN UNSAFE ENVIRONMENT? NO . ENDOCRINOLOGY: ARE YOU DIABETIC? NO . OTHER: DO YOU NEED ANY PRESCRIPTIONS? NO . IF YES, PLEASE LIST: ____ . ANY NEW PROBLEMS WITH YOUR MEDICATIONS? NO . WHEN DID YOU LAST EAT? 01/14 2000 . WHEN DID YOU LAST DRINK? 01/14 2000 . WHAT DID YOU LAST DRINK? WATER . NAME OF PERSON DRIVING YOU HOME? DANE DEL TORO . DO YOU HAVE ANY OTHER QUESTIONS OR CONCERNS NO PT HAS NOT HAD ANY VACCINES IN THE PAST 30 DAYS . VITAL SIGNS WT 189.2 LBS, HT 71 IN, BMI 26.39 INDEX, BP 122/73 MM HG, HR 90 /MIN, RR 18 /MIN, TEMP 98.1 F, OXYGEN SAT % 95%, SAFE IN ENV? (Y/N) Y, NA INITIALS AW 0859, REVIEWED BY: AD. ASSESSMENTS ILIOINGUINAL NEURALGIA OF RIGHT SIDE - G57.91 (PRIMARY) PROCEDURES PRE-PROCEDURE DIAGNOSIS: RIGHT ILIOINGUINAL NEURALGIAPOST-PROCEDURE DIAGNOSIS: SAMEPROCEDURE: RIGHT ILIOINGUINAL NERVE BLOCKSURGEON: TEODORA WHITNEYTHESIA: LOCALCOMPLICATIONS: NONEPRE-PROCEDURE NOTE: THE PATIENT IS SUFFERING OF INGUINAL PAIN AND NEURALGIA. I REVIEWED THE CHART AND DISCUSSED THE CASE WITH THE PATIENT. AFTER DISCUSSING RISK, ALTERNATIVES AND BENEFITS WE HAVE AGREED ON PROCEEDING WITH THE BLOCK TODAY. THE PATIENT AGREES.PROCEDURE NOTE: AFTER CONSENT WAS SIGNED THE PATIENT WAS TAKEN TO THE PROCEDURE ROOM AND PLACE IN THE SUPINE POSITION. THE RIGHT INGUINAL AREA WAS CLEAN WITH CHLORAPREP SOLUTION AND DRAPED ASEPTICALLY. THE PROCEDURE WAS DONE UNDER STERILE STANDARD TECHNIQUES. THE RIGHT SUPERIOR ANTERIOR ILIAC SPINE WAS PALPATED. THE ENTRY POINT WAS SELECTED 1 INCH MEDIAL AND CAUDAL. THEN USING A NERVE STIMULATOR APPROPRIATE STIMULATION OF THE NERVE WAS INDUCED PER PATIENTS FEEDBACK FIRST AT 2.0 VOLTS AND THEN AT 0.8 VOLTS. THERE WAS NO EVIDENCE OF BLOOD, PARESTHESIA OR VISCERAL PUNCTURE. THEN A SOLUTION OF 15 CC OF BUPIVACAINE 0.125% AND KENALOG 40 MGS WAS INJECTED SLOWLY APPROXIMATELY 0.5 INCHES DEEP AND WITH THE ASSISTANCE OF THE NERVE STIMULATOR DESCRIBED ABOVE. THE PATIENT TOLERATED THE PROCEDURE WITHOUT COMPLICATIONS AND WAS SENT TO THE RECOVERY ROOM. POST-PROCEDURE NOTE: I WILL SEE THE PATIENT IN A FOLLOW UP IN THE NEXT FEW WEEKS. WE ARE LOOKING FOR LONG LASTING PAIN RELIEVE WITH THIS INTERVENTION. INSTRUCTIONS WERE GIVEN QUESTIONS WERE ANSWERED AND THE PATIENT REPORTS UNDERSTANDING AND AGREES. I, HOMER HERNANDEZ, DOCUMENTED THE ABOVE INFORMATION ACTING A SCRIBE FOR DR. HICKMAN. I HAVE REVIEWED THE ABOVE DOCUMENT, WRITTEN BY HOMER HERNANDEZ SCRIBDerick AND I VERIFY THAT IT IS ACCURATE. PROCEDURE CODES 36014 N BLOCK INJ ILIO-ING/HYPOGI, MODIFIERS: RT DISPOSITION & COMMUNICATION FOLLOW UP 3 WEEKS ELECTRONICALLY SIGNED BY ISIDRO HICKMAN MD, MD ON 01/26/2020 AT 01:11 PM EDT DISCLAIMER : THIS IS A VISIT SUMMARY EXTRACTED FROM THE [employer] CHART. IT IS NOT A COPY OF THE [employer] PROGRESS NOTE. LONNY
== END ==
LOC: M PAIN 09:00
PROVIDERS: ATTEND Anesthesiology
DX: G57.91 Unspecified mononeuropathy of right lower limb (principal); F17.210 Nicotine dependence, cigarettes, uncomplicated; Z79.891 Long term (current) use of opiate analgesic; Z79.899 Other long term (current) drug therapy
CPT/HCPCS: 64425; J3301

== ENCOUNTER → 2020-01-28 | Outpatient (CLI) | payer OTHER ==
[~2020-01-28] MED LIST changes: -BUPIVACAINE HCL 0.25% 30ML VIAL As Ordered ONE; -ISOVUE-M 300 61% 15ML VIAL (Q9967) As Ordered ONE; -LIDOCAINE 1% SDV INJ 30 ML VIAL As Ordered ONE; -TRIAMCINOLONE ACETONIDE SUSP 40 MG/ML VIAL (J3301) As Ordered ONE; -diazePAM 5 MG TAB As Ordered ONE; -oxyCODONE 5MG TAB As Ordered ONE
--- NOTE | 2020-01-30 01:26 | ECWPNPC ---
PATIENT NAME: HELENE SILVERMAN : 1985 GENDER: MALE VISIT DATE: 01/28/2020 DISCHARGE DATE: 01/28/20 1117 VISIT LOCKED DATE TIME: PHYSICIAN: DOUGLAS ALBERTO RESOURCE: DOUGLAS ALBERTO REASON FOR APPOINTMENT 1. NEW BODY PART, BACK/NECK HISTORY OF PRESENT ILLNESS HISTORY OF PRESENT ILLNESS: PAIN THE PATIENT DESCRIBES THE PAINDURING THE LAST MONTH SEVERITY - PAIN SCORE OF4/10 LOCATIONSLOWER BACK QUALITYSHARP, STABBING DURATIONCONTINUOUS, CONSTANT, ALL DAY, AWAKENS FROM SLEEEP PAIN IS INCREASED BY:ACTIVITIES 34-YEAR-OLD MALE IN FOR POST RIGHT ILIOINGUINAL NERVE BLOCK FOLLOW-UP AND TO DISCUSS BACK PAIN. PATIENT FEELS THE PROCEDURE WAS SUCCESSFUL OVERALL RATING HIS PAIN PREPROCEDURE AT A 5-7 OUT OF 10 AND POSTPROCEDURE AT A 0 OUT OF 10. HE FEELS THE PROCEDURE CONTINUES TO HELP HIM TODAY. HE DOES ADMITS TO LOW BACK PAIN THAT HE HAS HAD FOR SEVERAL YEARS FURTHER STATING THAT THE OTHER DAY HE EXPERIENCED COMPLETE LOSS OF FEELING IN HIS LEGS BILATERALLY AND HE COULDN'T FEEL HIS TOES. HE WAS TAKEN TO THE EMERGENCY ROOM FOR THIS AND HAS SINCE GAINED SENSATION. HE RATES HIS PAIN CURRENTLY AT A 4 OUT OF 10 AND DESCRIBES IT SHARP AND STABBING THIS PAIN IS LOCATED IN HIS LOWER BACK. 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 SURGICAL HISTORY INTUSUSSEPTION 2007 BILATERAL INGUINAL HERNIA REPAIR WITH MESH 01/2010 INCISIONAL HERNIA REPAIR 12/2018 APPENDECTOMY 03/2019 FAMILY HISTORY FATHER: ALIVE 60 YRS, DEGENERATIVE JOINT DISEASE MOTHER: ALIVE 60 YRS, DEGENERATIVE JOINT DISEASE SIBLINGS: ALIVE 40 YRS SON(S): ALIVE 10 YRS MATERNAL GRAND MOTHER: , ALZHEIMER'S 1 SISTER(S) - HEALTHY. 1 SON(S) . SOCIAL HISTORY GENERAL: TOBACCO USE ARE YOU A:CURRENT SMOKER ARE YOU INTERESTED IN QUITTING?NOT READY TO QUIT COUNSELED THE PATIENT ON SMOKING EFFECTS, EDUCATION [id number]/25/2020 HOW MANY CIGARETTES A DAY DO YOU SMOKE?6-10 HOW SOON AFTER YOU WAKE UP DO YOU SMOKE YOUR FIRST CIGARETTE?31-60 MIN HOW OFTEN DO YOU SMOKE CIGARETTES?EVERY DAY PATIENT COUNSELED ON THE DANGERS OF TOBACCO USE AND URGED TO QUIT:01/28/2020 SMOKING CESSATION INFORMATION GIVEN01/28/2020 VAPORNO E-CIGARETTENO OTHERS AT HOME: YES. HOUSING: HOUSE WITH STAIRS. EDUCATION LEVEL OF EDUCATION:NOT FINISHED COLLEGE DIET: REGULAR. LANGUAGE LANGUAGES SPOKEN:MACEDONIAN DOMESTIC VIOLENCE DO YOU FEEL SAFE IN YOUR ENVIRONMENT?YES RECREATIONAL DRUG USE DRUG USE? PAST USE OF MARIJUANA. NONE IN PAST 15 YEARS. EXERCISE: NO REGULAR EXERCISE. LEARNING BARRIERS / SPECIAL NEEDS CHANGE FROM LAST VISIT?YES BARRIERS TO LEARNING?NO HEARING IMPAIRED?YES TINNITIS VISION IMPAIRED?NO COGNITIVELY IMPAIRED?NO READINESS TO LEARN?YES LEARNING PREFERENCES?NO LEARNING CAPABILITIES PRESENT?YES EMOTIONAL BARRIERS?NO SPECIAL DEVICES?YES :CANE RARELY IF NEEDED. FINISHED CIGAR MAKER NEEDED?NO PAIN CLINIC PFS, CLERGY, PUBLIC HEALTH REFERRALS PFS REFERRAL NEEDED?NO CLERGY REFERRAL NEEDED?NO PUBLIC HEALTH REFERRAL NEEDED?NO WAS THE PROVIDER NOTIFIED OF ANY PERTINENT INFO?YES HAS THE PATIENT BEEN EDUCATED REGARDING HIS/HER PLAN OF CARE?YES HAS THE PATIENT BEEN EDUCATED REGARDING PAIN, THE RISK FOR PAIN, THE IMPORTANCE OF EFFECTIVE PAIN MANAGEMENT, AND THE PAIN ASSESSMENT PROCESS?YES LATEX QUESTIONNAIRE LATEX ALLERGY : HAVE YOU EVER DEVELOPED ANY TYPE OF REACTION AFTER HANDLING LATEX PRODUCTS SUCH RUBBER GLOVES, CONDOMS, DIAPHRAGMS, BALLOONS, SOCKS, OR UNDERWEAR?NO LATEX ALLERGY : HAVE YOU EVER DEVELOPED ANY TYPE OF REACTION DURING OR AFTER DENTAL APPOINTMENT, VAGINAL/RECTAL EXAMINATION, SURGICAL PROCEDURE, OR ANY OTHER EXPOSURE?NO DATE ASKED : 01/15/2020 LATEX RISK : HAVE YOU EVER HAD ANY DIFFICULTY BREATHING OR HIVES AFTER EATING OR HANDLING ANY FRUITS, OR VEGETABLES; SUCH KIWI, BANANAS, STONE FRUITS, OR CHESTNUTSNO LATEX RISK : DO YOU HAVE A PREVIOUS PERSONAL HISTORY OF MORE THAN NINE SURGERIES, SPINA BIFIDA, OR REPEATED CATHERIZATIONS? NO LATEX RISK : ARE YOU FREQUENTLY EXPOSED TO LATEX PRODUCTS IN YOUR OCCUPATION?YES CAFFEINE CAFFEINE USE?YES MOUNTAIN DEW 60 OZ PER DAY ADVANCE DIRECTIVE ADVANCE DIRECTIVE DISCUSSED WITH PATIENT:YES PT DOES NOT HAVE ANY ADVANCED DIRECTIVES AND HE DECLINES INFORMATION ON HCP AT THIS TIME. VOODOO [id number] SCIENTOLOGIST MARITAL STATUS: . ALCOHOL SCREENING DID YOU HAVE A DRINK CONTAINING ALCOHOL IN THE PAST YEAR?YES HOW OFTEN DID YOU HAVE SIX OR MORE DRINKS ON ONE OCCASION IN THE PAST YEAR?NEVER (0 POINTS) HOW MANY DRINKS DID YOU HAVE ON A TYPICAL DAY WHEN YOU WERE DRINKING IN THE PAST YEAR?1 OR 2 (0 POINTS) HOW OFTEN DID YOU HAVE A DRINK CONTAINING ALCOHOL IN THE PAST YEAR?MONTHLY OR LESS (1 POINT) POINTS1 INTERPRETATIONNEGATIVE OCCUPATION: [employer]. PRE-SCREENING COMPLETED 11/06/2019 1630 JS. HOSPITALIZATION/MAJOR DIAGNOSTIC PROCEDURE SURGERY 03/2019 MIGRAINE /STROKE 1999 REVIEW OF SYSTEMS REVIEWED BY: PROVIDER: KATERINA PARADA-Efrem . CONSTITUTIONAL: ANY CHANGE IN YOUR MEDICAL CONDITION? NO . CHILLS NO . FEVER NO . INFECTION: DO YOU HAVE NEW INFECTIONS? NO . DO YOU HAVE HISTORY OF MRSA? NO . MUSCULOSKELETAL: ANY NEW PATTERNS OF PAIN OR NUMBNESS? YES, INCREASED LOWER BACK PAIN AND NUMBNESSTHAT RADIATES TO THE LEGS . GASTROENTEROLOGY: ANY NEW CHANGE IN BOWEL CONTROL? NO . GENITOURINARY: ANY NEW CHANGE IN BLADDER CONTROL? NO . IS THERE A CHANCE YOU COULD BE ? NO . HEMATOLOGY/LYMPH: DO YOU TAKE ANY BLOOD THINNERS? (FOR EXAMPLE- COUMADIN, PLAVIX, AGGRENOX, PLATEL, PRADAXA, OR XARELTO) NO . WHEN WAS YOUR LAST DOSE? DATE: TIME: . NEUROLOGY: HAVE YOU FALLEN IN THE PAST 12 MONTHS? YES . ANY NEW EXTREMITY NUMBNESS OR WEAKNESS? NO . CARDIOLOGY: DO YOU HAVE A PACEMAKER OR DEFIBRILLATOR? NO . RESPIRATORY: HAVE YOU BEEN SICK IN THE PAST WEEK? NO . FEVER NO . FLU LIKE SYMPTOMS? NO . COUGH NO . INTEGUMENTARY: DO YOU HAVE ANY RASHES OR OPEN SORES? NO . ALLERGIC/IMMUNO: ARE YOU ALLERGIC TO IV DYE? NO . ANY NEW ALLERGIES? NO . PSYCHIATRIC: DO YOU HAVE THOUGHTS OF HURTING YOURSELF OR SOMEONE ELSE? NO . ARE YOU ABUSED, NEGLECTED, OR IN AN UNSAFE ENVIRONMENT? NO . ENDOCRINOLOGY: ARE YOU DIABETIC? NO . OTHER: DO YOU NEED ANY PRESCRIPTIONS? NO . IF YES, PLEASE LIST: ____ . ANY NEW PROBLEMS WITH YOUR MEDICATIONS? NO . WHEN DID YOU LAST EAT? ____ . WHEN DID YOU LAST DRINK? ____ . WHAT DID YOU LAST DRINK? ____ . NAME OF PERSON DRIVING YOU HOME? ____ . DO YOU HAVE ANY OTHER QUESTIONS OR CONCERNS YES,DISCUSS PAIN MEDICATION , INCREASED PAIN MAINLY DURING MIDNIGHT . VITAL SIGNS WT 194 LBS, HT 71 IN, BMI 27.05 INDEX, BP 120/76 MM HG, HR 80 /MIN, RR 18 /MIN, TEMP 98.3 F, OXYGEN SAT % 99%, SAFE IN ENV? (Y/N) YES, NA INITIALS AW 1021, REVIEWED BY: CHERRI HOPE LPN. EXAMINATION GENERAL EXAMINATION: GENERALNO ACUTE DISTRESS, WELL NOURISHED AND HYDRATED. PSYCHAPPROPRIATE MOOD AND AFFECT . LUNGS:CLEAR TO AUSCULTATION BILATERALLY, NO WHEEZES, RHONCHI, RALES. HEART:NO MURMURS, REGULAR RATE AND RHYTHM. BACK:POINT TENDER ALONG LUMBAR SPINE, SURROUNDING SKIN SHOWS NO ERYTHEMA, ECCHYMOSIS, INCREASED WARMTH, AND/OR SKIN ERUPTIONS NOTED. . MUSCULOSKELETAL:NOTABLE WEAKNESS OF THE RIGHT LOWER EXTREMITY LEFT LOWER EXTREMITY WITHIN NORMAL LIMITS. . ASSESSMENTS ILIOINGUINAL NEURALGIA OF RIGHT SIDE - G57.91 (PRIMARY) INTERVERTEBRAL DISC DISORDER WITH RADICULOPATHY OF LUMBOSACRAL REGION - M51.17 TREATMENT ILIOINGUINAL NEURALGIA OF RIGHT SIDE CLINICAL NOTES: 34-YEAR-OLD MALE IN FOR POST RIGHT ILIOINGUINAL NERVE BLOCK FOLLOW-UP. GIVEN PRESENTING SYMPTOMS AND RESULTS OF PHYSICAL EXAMINATION RECOMMENDED REFERRAL TO NEUROLOGY GIVEN PATIENT'S RECENT HISTORY OF LOSS OF SENSATION OF HIS LEGS BILATERALLY WITH FOLLOW-UP AFTER VISIT. PATIENT EXCESS UNDERSTANDING OF AND WAS IN AGREEMENT WITH TREATMENT PLAN. GIVEN TIME TO ASK QUESTIONS AND EXPRESS CONCERNS. INTERVERTEBRAL DISC DISORDER WITH RADICULOPATHY OF LUMBOSACRAL REGION REFERRAL TO:[facility] REASON:EVALUATE FOR BILATERAL LOWER EXTREMITY LOSS OF SENSATION PROCEDURE CODES FA211 ESTABILISHED PATIENT [facility] FACILITY CHARGE DISPOSITION & COMMUNICATION FOLLOW UP 4 WEEKS AND AFTER NEUROLOGY APPOINTMENT (REASON: RIGHT ILIOINGUINAL NEURALGIA, NEUROLOGY REFERRAL) ELECTRONICALLY SIGNED BY KARMA LOVELACE ON 01/29/2020 AT 12:04 PM EDT DISCLAIMER : THIS IS A VISIT SUMMARY EXTRACTED FROM THE [employer] CHART. IT IS NOT A COPY OF THE [employer] PROGRESS NOTE. MTDD
== END ==
LOC: M PAIN 11:00
PROVIDERS: ATTEND Family Medicine
DX: G57.91 Unspecified mononeuropathy of right lower limb (principal); M51.17 Intervertebral disc disorders with radiculopathy, lumbosacral region

== ENCOUNTER 2020-03-02 17:50 | Emergency (ER) | payer OTHER ==
[~2020-03-02] VITALS: Ht 182.9 cm; Wt 86.3 kg
[2020-03-02 18:54] LABS: BASO # 0.1 10^3/uL (0.0-0.2); BASO % 0.7 % (0.0-1.0); EOS # 0.1 10^3/uL (0.0-0.5); EOS % 1.4 % (0.0-3.0); HEMATOCRIT 41.1 % (42.0-52.0); HEMOGLOBIN 13.8 g/dl (13.5-17.5); LYMPH % 23.7 % (24.0-44.0); MEAN CORPUSCULAR HEMOGLOBIN 28.2 pg (27.0-33.0); MEAN CORPUSCULAR HGB CONC 33.6 g/dl (32.0-36.5); MEAN CORPUSCULAR VOLUME 83.9 fl (80.0-96.0); MONO # 0.7 10^3/uL (0.0-0.8); NEUTROPHILS # 5.7 10^3/uL (1.5-8.5); PLATELET COUNT, AUTOMATED 263 10^3/uL (150-450); WHITE BLOOD COUNT 8.6 10^3/uL (4.0-10.0)
--- NOTE | 2020-03-02 19:03 | REPVR ---
PROCEDURE INFORMATION: Exam: CT Head Without Contrast Exam date and time: 03/02/2020 6:45 PM Age: 34 years old Clinical indication: Pain; Headache; Additional info: Altered mental status TECHNIQUE: Imaging protocol: Computed tomography of the head without contrast. Radiation optimization: All CT scans at this facility use at least one of these dose optimization techniques: automated exposure control; mA and/or kV adjustment per patient size (includes targeted exams where dose is matched to clinical indication); or iterative reconstruction. COMPARISON: No relevant prior studies available. FINDINGS: Brain: Normal. No hemorrhage. Unremarkable white matter. No mass effect. Ventricles: Normal. No ventriculomegaly. Bones/joints: Unremarkable. No acute fracture. Sinuses: Visualized sinuses are unremarkable. No fluid levels. Mastoid air cells: Visualized mastoid air cells are well aerated. Soft tissues: Unremarkable. IMPRESSION: No acute intracranial abnormality. Electronically signed by: Lloyd Brizuela On 03/02/2020 19:02:50 PM
[2020-03-02 19:37] LABS: ACETAMINOPHEN LEVEL < 2.0 UG/ML (10.0-30.0); ALT/SGPT 21 U/L (12-78); BILIRUBIN,DIRECT 0.2 MG/DL (0.0-0.2); BILIRUBIN,TOTAL 0.6 MG/DL (0.2-1.0); BLOOD UREA NITROGEN 12 MG/DL (7-18); CALCIUM LEVEL 8.8 MG/DL (8.5-10.1); CARBON DIOXIDE LEVEL 30 MEQ/L (21-32); CHLORIDE LEVEL 99 MEQ/L (98-107); CK-MB VALUE MASS 3.7 NG/ML (<3.6); CPK CREATINE PHOSPHOKINASE 369 U/L (39-308); CREATININE FOR GFR 1.01 MG/DL (0.70-1.30); ETHYL ALCOHOL (ETHANOL) < 0.003 % (0.000-0.010); FREE THYROXINE INDEX 4.6 % (1.4-3.8); GLOMERULAR FILTRATION RATE > 60.0 (>60); GLUCOSE, FASTING 81 MG/DL (70-100); MAGNESIUM LEVEL 2.2 MG/DL (1.8-2.4); POTASSIUM SERUM 3.8 MEQ/L (3.5-5.1); SALICYLATE LEVEL 4.2 MG/DL (5.0-30.0); SODIUM LEVEL 136 MEQ/L (136-145); T UPTAKE 35 % (33-40); THYROID STIMULATING HORMONE 0.973 uIU/ML (0.358-3.740); THYROXINE (T4) 13.2 UG/DL (4.5-12.0); TOTAL PROTEIN 7.4 GM/DL (6.4-8.2); TROPONIN I < 0.02 NG/ML (< 0.10)
[2020-03-02 20:15] VITALS: BP 156/96
[2020-03-02 20:55] LABS: AMPHETAMINES LEVEL URINE NEGATIVE (NEGATIVE); BARBITURATES URINE NEGATIVE (NEGATIVE); BENZODIAZEPINES URINE NEGATIVE (NEGATIVE); CANNABINOIDS URINE NEGATIVE (NEGATIVE); COCAINE METABOLITE URINE NEGATIVE (NEGATIVE); METHADONE URINE NEGATIVE (NEGATIVE); OPIATES URINE POSITIVE (NEGATIVE); PHENCYCLIDINE URINE NEGATIVE (NEGATIVE)
--- NOTE | 2020-03-03 16:41 | ECGEPIP ---
[facility] - ED Test Date: 2020-03-02 Pat Name: HELENE SILVERMAN Department: Room: - Gender: Male Behavioral Instructor: yamile saha : 1985 Requested By: NELI PARADA Order Number: [id number] Reading MD: Danielle Ohara Measurements Intervals [place] Rate: 82 P: 35 AK: 157 QRS: 45 QRSD: 91 T: 11 QT: 328 QTc: 385 Interpretive Statements SINUS RHYTHM NO PRIOR Electronically Signed on 03-03-2020 16:41:02 EDT by Danielle Ohara
== END 2020-03-02 20:32 | disposition home or self-care (01) ==
LOC: M ED 17:50
DX: R56.9 Unspecified convulsions (principal); R55 Syncope and collapse; R41.82 Altered mental status, unspecified; F17.200 Nicotine dependence, unspecified, uncomplicated; Z86.73 Personal history of transient ischemic attack (TIA), and cerebral infarction without residual deficits; Z79.899 Other long term (current) drug therapy
CPT/HCPCS: 70450; 80048; 80076; 80307; 82550; 82553; 83605; 83735; 84436; 84443; 84479; 85025; 93005; 93041; 94760; 99285; G0480

== ENCOUNTER 2020-05-09 08:21 | Emergency (ER) | payer OTHER ==
[~2020-05-09] VITALS: Ht 180.3 cm; Wt 83.1 kg
[2020-05-09] MEDS ORDERED: OXYC10TA12 PO (08:28)
[2020-05-09] MEDS ORDERED: GABA-843 PO (08:28)
[2020-05-09] MEDS ORDERED: LIDOCAINE 2% MDV 20ML VIAL SC ONE (08:45)
[2020-05-09] MEDS ORDERED: BACT800T5 PO (08:50)
[2020-05-09] MEDS ORDERED: BACTRIM 160MG/800MG DS TAB PO ONE (09:00)
[2020-05-09 09:09] VITALS: BP 117/77
[2020-05-10] MEDS ORDERED: BACT800T5 PO (10:45)
== END 2020-05-09 09:10 | disposition home or self-care (01) ==
LOC: M ED 08:21
DX: L02.413 Cutaneous abscess of right upper limb (principal); Z79.899 Other long term (current) drug therapy

== ENCOUNTER 2020-05-10 09:30 | Inpatient (IN) | payer OTHER ==
[~2020-05-10] VITALS: Ht 180.3 cm; Wt 83.4 kg
[~2020-05-10 09:30] MED LIST changes: +BACT800T5 PO; +GABA-843 PO; +OXYC10TA12 PO
[2020-05-10] MEDS ORDERED: VANCOMYCIN HCL 1,750 MG in D5W 250 ML IV ONE (10:15)
[2020-05-10] MEDS ORDERED: VANCOMYCIN HCL 750 MG, VIAL MATE ADAPTER 1 EACH in D5W 250 ML IV ONE (10:30)
[2020-05-10] MEDS ORDERED: VANCOMYCIN HCL 1,000 MG, VIAL MATE ADAPTER 1 EACH in D5W 250 ML IV ONE (10:30)
[2020-05-10 10:45] LABS: BASO % 0.3 % (0.0-1.0); EOS # 0.2 10^3/uL (0.0-0.5); EOS % 1.3 % (0.0-3.0); HEMATOCRIT 43.4 % (42.0-52.0); HEMOGLOBIN 14.2 g/dl (13.5-17.5); LYMPH # 1.3 10^3/uL (1.5-5.0); LYMPH % 11.3 % (24.0-44.0); MEAN CORPUSCULAR HEMOGLOBIN 28.6 pg (27.0-33.0); MEAN CORPUSCULAR HGB CONC 32.7 g/dl (32.0-36.5); MEAN CORPUSCULAR VOLUME 87.3 fl (80.0-96.0); MONO # 0.8 10^3/uL (0.0-0.8); MONO % 6.6 % (0.0-5.0); NEUTROPHILS # 9.1 10^3/uL (1.5-8.5); NEUTROPHILS % 80.2 % (36.0-66.0); PLATELET COUNT, AUTOMATED 302 10^3/uL (150-450); RED BLOOD COUNT 4.97 10^6/uL (4.30-6.10); WHITE BLOOD COUNT 11.4 10^3/uL (4.0-10.0)
[2020-05-10] MEDS ORDERED: BACT800T5 PO (10:45)
[2020-05-10 10:58] LABS: BLOOD UREA NITROGEN 7 MG/DL (7-18); C REACTIVE PROTEIN QUANTITATIV 5.93 MG/DL (0.00-0.30); CALCIUM LEVEL 8.8 MG/DL (8.5-10.1); CARBON DIOXIDE LEVEL 26 MEQ/L (21-32); CHLORIDE LEVEL 106 MEQ/L (98-107); CREATININE FOR GFR 0.84 MG/DL (0.70-1.30); GLOMERULAR FILTRATION RATE > 60.0 (>60); GLUCOSE, FASTING 97 MG/DL (70-100); POTASSIUM SERUM 4.3 MEQ/L (3.5-5.1); SODIUM LEVEL 137 MEQ/L (136-145)
[2020-05-10 11:13] LABS: ERYTHROCYTE SEDIMENTATION RATE 21 mm/hr (0-15)
[2020-05-10] MEDS ORDERED: oxyCODONE 5MG TAB PO ONE (12:30)
[2020-05-10] MEDS ORDERED: ACETAMINOPHEN TAB 650MG DOSE (2X325MG) PO PRN (13:45)
[2020-05-10] MEDS: ENOXAPARIN 40MG/0.4ML SYRINGE (J1650 PER 10MG) SC SCH (14:27)
--- NOTE | 2020-05-10 15:05 | REP ---
RIGHT FOREARM, TWO VIEWS: FOREARM: There is no evidence of an acute fracture, dislocation or intrinsic bone disease. No osseous destruction is seen. IMPRESSION: No fracture or dislocation. Electronically Signed by Solo Vidal MD 05/10/2020 03:34 P
[2020-05-10 15:15] VITALS: BP 122/71
[2020-05-10] MEDS: VANCOMYCIN HCL 1,000 MG, VIAL MATE ADAPTER 1 EACH in D5W 250 ML IV SCH ×2 (16:31→23:35)
[2020-05-10 18:00] VITALS: BP 119/71
[2020-05-10] MEDS: oxyCODONE 5MG TAB PO PRN (18:22)
[2020-05-10] MEDS: GABAPENTIN 300 MG CAP PO SCH (20:14)
[2020-05-10 22:00] VITALS: BP 106/66
--- NOTE | 2020-05-10 22:53 | CR ---
DATE OF CONSULTATION: 05/10/2020 REASON FOR CONSULTATION: Cellulitis with right arm abscess. BRIEF HISTORY OF PRESENT ILLNESS: The patient is a 34-year-old male who presented to the emergency department yesterday with an abscess of his right arm that started several days ago and essentially had an incision and drainage (I and D) of this. Returns with some increasing swelling in the area with still an elevated white count and with cellulitis in the area. I was asked to see the patient to see whether there was additional abscess to drain in this localized area and for dressing change recommendations. PAST MEDICAL HISTORY: Significant for a history of appendectomy, history of hernia repair times three, history of intussusception, history of stroke at 8 years of age, history of smoking, history of migraines, history of cardiac disorder and hypercholesterolemia. MEDICATIONS: Include gabapentin and oxycodone. PHYSICAL EXAM: Reveals a 34-year-old male who looks stated age. HEENT is unremarkable. Neck: Supple without adenopathy. Lungs are clear anteriorly. Heart is regular. Right arm exam reveals some swelling and edema in his right forearm. He has some thickening around the abscess drainage site and some induration of the subcutaneous tissue, but I am not seeing any additional abscess at the site. I removed the packing, and there is no tracking that I can appreciate on his physical exam. It is actually a well circumscribed area, but it is at least about a 2 x 3 cm indurated area. There is no purulent drainage at this time, and he does have some minimal cellulitis extending down onto the dorsum of his hand. IMPRESSION AND PLAN: The patient has a cellulitis associated with an abscess on his right forearm. The cultures were performed with him, but I do not see any evidence of a wound culture pending. In any case, the patient will continue with some local dressing changes, and I have ordered some at this point. More importantly, he should keep his arm elevated, and I anticipate with his antibiotic changes as well as his arm elevation and dressing changes, he should have some improvement/resolution of his symptoms over the ensuing 12-24 hours. I anticipate just given the extent of his inflammatory changes that it may take at least 24 hours before enough resolution is appreciated before he is able to be discharged home.
[2020-05-11] VITALS (7 sets, daily range): BP systolic 94–110; BP diastolic 58–69
[2020-05-11] MEDS: NS 1,000 ML IV SCH ×2 (02:35→08:04)
[2020-05-11 05:26] LABS: BASO % 0.5 % (0.0-1.0); EOS # 0.4 10^3/uL (0.0-0.5); EOS % 4.5 % (0.0-3.0); HEMOGLOBIN 13.6 g/dl (13.5-17.5); LYMPH # 1.9 10^3/uL (1.5-5.0); LYMPH % 24.4 % (24.0-44.0); MEAN CORPUSCULAR HGB CONC 32.4 g/dl (32.0-36.5); MEAN CORPUSCULAR VOLUME 86.4 fl (80.0-96.0); MONO # 0.8 10^3/uL (0.0-0.8); MONO % 9.8 % (0.0-5.0); NEUTROPHILS # 4.7 10^3/uL (1.5-8.5); NEUTROPHILS % 60.4 % (36.0-66.0); PLATELET COUNT, AUTOMATED 267 10^3/uL (150-450); RED BLOOD COUNT 4.86 10^6/uL (4.30-6.10); WHITE BLOOD COUNT 7.8 10^3/uL (4.0-10.0)
[2020-05-11 05:58] LABS: ALBUMIN 3.1 GM/DL (3.2-5.2); ALT/SGPT 15 U/L (12-78); BILIRUBIN,TOTAL 0.3 MG/DL (0.2-1.0); BLOOD UREA NITROGEN 6 MG/DL (7-18); C REACTIVE PROTEIN QUANTITATIV 3.44 MG/DL (0.00-0.30); CALCIUM LEVEL 8.5 MG/DL (8.5-10.1); CARBON DIOXIDE LEVEL 27 MEQ/L (21-32); CHLORIDE LEVEL 110 MEQ/L (98-107); CREATININE FOR GFR 0.66 MG/DL (0.70-1.30); GLOMERULAR FILTRATION RATE > 60.0 (>60); GLUCOSE, FASTING 92 MG/DL (70-100); POTASSIUM SERUM 4.4 MEQ/L (3.5-5.1); SODIUM LEVEL 141 MEQ/L (136-145); TOTAL PROTEIN 6.5 GM/DL (6.4-8.2)
[2020-05-11] MEDS: VANCOMYCIN HCL 1,000 MG, VIAL MATE ADAPTER 1 EACH in D5W 250 ML IV SCH ×3 (08:00→21:38)
[2020-05-11] MEDS: ENOXAPARIN 40MG/0.4ML SYRINGE (J1650 PER 10MG) SC SCH (08:01)
[2020-05-11] MEDS: oxyCODONE 5MG TAB PO PRN ×3 (08:05→20:18)
--- NOTE | 2020-05-11 08:37 | HPE ---
DATE OF ADMISSION: 05/10/2020 CHIEF COMPLAINT: Swollen right upper arm. HISTORY OF PRESENT ILLNESS: This is a 34-year-old who had what sounds like a pimple on his arm. He popped it. It became very red and swollen. He went to the emergency room. He had irrigation and debridement and packed. He came back today for his recheck. The arm was extremely sore, very swollen, red. Laboratory studies were done. White count was elevated at 11.4. Hemoglobin 14.2. Hematocrit 43.4. Platelets were 302. Electrolytes were normal. BUN was 7. Creatinine was 0.84. C-reactive protein was 5.93. Radius and ulna x-ray showed no fracture or dislocation. The patient was medicated for pain and started on vancomycin. In the emergency room, his temperature upon arrival had been 99, pulse 87, respirations 18, blood pressure 122/69, and pulse oximetry of 96% on room air. Assessment was done and the patient will be admitted for treatment of cellulitis of the right arm and status post irrigation/debridement (I/D) of abscess, having failed outpatient treatment with oral antibiotics. Tetanus is up to date. PRIMARY CARE PROVIDER: He goes to Dr. Key at the [facility]. ALLERGIES: No known drug allergies. SOCIAL HISTORY: He is . He has a 9-year-old son. He does not drink alcohol. He smokes one pack of cigarettes per day. Recreational drug use - none. PAST MEDICAL HISTORY: 1. Chronic disk disease for which he sees the [facility]. 2. Hepatitis C, which has been treated. PAST SURGICAL HISTORY: 1. Appendectomy. 2. Repair of hernia times three, two in 2010 bilateral inguinal, and ventral hernia in 2015. 3. In 2007, he was treated and had surgery for intussusception. HOME MEDICATIONS: For his back, he takes gabapentin 600 mg by mouth at bedtime, oxycodone 10 mg four times a day as needed for pain. FAMILY HISTORY: Mother is alive and well, age 60. Father is alive and well, age 60. REVIEW OF SYSTEMS: 11 systems review was done and was unremarkable other than the pain, swelling and redness in his right arm. PHYSICAL EXAMINATION: 34-year-old cooperative male. Height 71 inches. Weight 83.4 kg. Body mass index (BMI) 25.6. Blood pressure 133/76. Pulse 76. Respirations 16. Oxygen saturation 98% on roomair. Temperature 97.6. The patient is alert and oriented times three. Pupils equal and react to light. Extraocular movements intact. Cornea and sclera clear. Conjunctiva normal. No facial asymmetry. Pharynx, tongue and gums pink and moist. Tongue is midline. Neck is supple, without lymphadenopathy. No thyromegaly. No goiter. Carotids 2+, without bruit. Chest clear to auscultation, without wheeze or retraction. Heart is regular. Abdomen benign. Bowel sounds positive. Genitourinary ()/Rectal: Not done. Extremities no cyanosis, clubbing or edema, except for right arm which has swelling and edema in the right forearm up to past the elbow. Abscess with packing is noted. There is some induration of the subcutaneous tissue and the area around it is indurated. Hand staffing account manager are equal. Peripheral pulses equal and palpable bilaterally. IMPRESSION AND PLAN: 1. Status post I/D abscess and cellulitis of the right arm. The patient will be admitted having failed outpatient treatment. Surgical consult for wound care. IV antibiotics, will continue with vancomycin. Follow up on wound care which was done yesterday in the ER. Followup blood cultures. The patient will be admitted to the hospitalist service. 2. Chronic disk disease. Continue medications for pain and [facility]. 3. Deep vein thrombosis prophylaxis. Lovenox. The patient will be admitted to the medical-surgical floor. Will obtain surgical consult.
--- NOTE | 2020-05-11 12:50 | IPN ---
DATE: 05/11/2020 The patient overall has been doing well with his arm. It is hurting less this morning. He has been afebrile overnight. He has had some minimal drainage, but otherwise seems to be making some good progress/improvement. His white count has come down to normal this morning and his right arm is less erythematous and less drainage at the site. We irrigated the site. There was some purulent drainage, but this came out nicely and is cleaning up nicely as well. IMPRESSION AND PLAN: The patient has a healing right forearm abscess site. I do recommend given the amount of cellulitis that the patient be discharged home when medicine feels comfortable. It is not unreasonable to keep him for the next 24 hours given his admission and plan for discharge home with dressing changes on a daily basis, which the patient can do himself with just irrigating the site with peroxide and placing a dry sterile dressing over the area. He will follow up with myself in about a week or two for reevaluation thereafter.
--- NOTE | 2020-05-11 19:27 | IPNPDOC ---
Text Note Date of Service The patient was seen on 05/11/20. NOTE SUBJECTIVE: -Feels better. Lesion still expressing some pus this morning however surrounding area now soft and pain much improved. PHYSICAL EXAMINATION: General: NAD HEENT: NCAT, PERRLA, EOMI, MMM Pulm: Chest clear to auscultation, without wheeze, crackles or rhonchi Heart: RRR, no mrg Abdomen: soft, NTND Extremities: Right arm with swelling and edema in the right forearm [id number] from wrist with surrounding erythema. patient reporting significant recession of erythematous streaking that was down the entire arm and swelling. Abscess is s/p I&D and open is noted. Expresses pus with pinching. PLAN: 1. Status post I/D abscess and cellulitis of the right arm. T -continue vancomycin -MRSA PCR -f/u blood Cx -surgery consulted, appreciate recs. Wound care per surgery recs with irrigation with H2O2 2. Chronic disk disease. Continue medications for pain and neuropathy [facility]. 3. Deep vein thrombosis prophylaxis. Lovenox. VS,Fishbone, I+O VS, Fishbone, I+O Laboratory Tests 05/11/20 05:08 Vital Signs Date Time Temp Pulse Resp B/P (MAP) Pulse Ox O2 Delivery O2 Flow Rate FiO2 05/11/20 14:46 18 05/11/20 14:00 97.7 60 110/66 (81) 97 Room Air I&O- Last 24 Hours up to 6 AM 05/11/20 05:59 Intake Total 2365 ml Output Total 800 ml Balance 1565 ml NELLY OROURKE MD May 11, 2020 19:27
[2020-05-11] MEDS: GABAPENTIN 300 MG CAP PO SCH (20:18)
[2020-05-12] MEDS: VANCOMYCIN HCL 1,000 MG, VIAL MATE ADAPTER 1 EACH in D5W 250 ML IV SCH ×2 (03:08→10:03)
[2020-05-12] MEDS: oxyCODONE 5MG TAB PO PRN ×2 (03:10→08:54)
[2020-05-12 06:00] VITALS: BP 116/70
[2020-05-12 07:37] LABS: BASO # 0.1 10^3/uL (0.0-0.2); BASO % 1.2 % (0.0-1.0); EOS # 0.3 10^3/uL (0.0-0.5); EOS % 4.9 % (0.0-3.0); HEMATOCRIT 41.5 % (42.0-52.0); HEMOGLOBIN 13.7 g/dl (13.5-17.5); LYMPH # 1.8 10^3/uL (1.5-5.0); LYMPH % 30.1 % (24.0-44.0); MEAN CORPUSCULAR HEMOGLOBIN 28.4 pg (27.0-33.0); MEAN CORPUSCULAR VOLUME 86.1 fl (80.0-96.0); MONO # 0.6 10^3/uL (0.0-0.8); MONO % 9.2 % (0.0-5.0); NEUTROPHILS # 3.3 10^3/uL (1.5-8.5); NEUTROPHILS % 54.3 % (36.0-66.0); PLATELET COUNT, AUTOMATED 283 10^3/uL (150-450); RED BLOOD COUNT 4.82 10^6/uL (4.30-6.10); WHITE BLOOD COUNT 6.1 10^3/uL (4.0-10.0)
[2020-05-12 08:04] LABS: ALBUMIN 3.1 GM/DL (3.2-5.2); ALT/SGPT 16 U/L (12-78); BILIRUBIN,TOTAL 0.3 MG/DL (0.2-1.0); BLOOD UREA NITROGEN 5 MG/DL (7-18); CALCIUM LEVEL 8.8 MG/DL (8.5-10.1); CARBON DIOXIDE LEVEL 25 MEQ/L (21-32); CHLORIDE LEVEL 109 MEQ/L (98-107); CREATININE FOR GFR 0.67 MG/DL (0.70-1.30); GLOMERULAR FILTRATION RATE > 60.0 (>60); GLUCOSE, FASTING 81 MG/DL (70-100); POTASSIUM SERUM 4.3 MEQ/L (3.5-5.1); SODIUM LEVEL 140 MEQ/L (136-145); TOTAL PROTEIN 6.6 GM/DL (6.4-8.2)
[2020-05-12] MEDS: ENOXAPARIN 40MG/0.4ML SYRINGE (J1650 PER 10MG) SC SCH (08:53)
[2020-05-12] MEDS ORDERED: DOXY-350 PO (13:04)
[2020-05-12] MEDS ORDERED: CEPH500C PO (13:11)
--- NOTE | 2020-05-12 14:41 | IPNPDOC ---
Text Note Date of Service The patient was seen on 05/12/20. NOTE SUBJECTIVE: -continues to feel better. PHYSICAL EXAMINATION: General: NAD HEENT: NCAT, PERRLA, EOMI, MMM Pulm: Chest clear to auscultation, without wheeze, crackles or rhonchi Heart: RRR, no mrg Abdomen: soft, NTND Extremities: Right arm with swelling and edema in the right forearm ~5cm from wrist with immediate area with surrounding erythema. Continues to express pus with pinching. PLAN: 1. Status post I/D abscess and cellulitis of the right arm. T -continue vancomycin, day 2, consider switch to keflex to complete a course -MRSA PCR negative -f/u blood Cx -surgery consulted, appreciate recs. Wound care per surgery recs with irrigation with H2O2 2. Chronic disk disease. Continue medications for pain and neuropathy as [facility]. 3. Deep vein thrombosis prophylaxis. Lovenox. VS,Fishbone, I+O VS, Fishbone, I+O Laboratory Tests 05/12/20 07:19 Vital Signs Date Time Temp Pulse Resp B/P (MAP) Pulse Ox O2 Delivery O2 Flow Rate FiO2 05/12/20 08:54 18 05/12/20 06:00 98.0 65 116/70 (85) 97 Room Air I&O- Last 24 Hours up to 6 AM 05/12/20 06:00 Intake Total 3225 ml Output Total 3100 ml Balance 125 ml NELLY OROURKE MD May 12, 2020 09:04
--- NOTE | 2020-05-12 14:43 | DS.PDOC ---
Discharge Summary General Date of Admission May 10, 2020 at 13:39 Date of Discharge 05/12/2020 Attending Physician: NELLY OROURKE MD Discharge Summary PROCEDURES PERFORMED DURING STAY: None ADMITTING DIAGNOSES: 1. Cellulitis 2. RUE abscess s/p I&D DISCHARGE DIAGNOSES: 1. Cellulitis 2. RUE abscess s/p I&D 3. [facility]. 4. Hepatitis C, which has been treated. COMPLICATIONS/CHIEF COMPLAINT: Abscess Of Right Upper Extremity. HISTORY OF PRESENT ILLNESS: 34-year-old man had who recently presented to the ED with a R forearm abscess s /p I&D in the ED with irrigation and debridement and packed who returned to the ED a few days after with the arm being extremely sore, very swollen, red and pus draining out of the recently I&D'd lesion. Laboratory studies were done. HOSPITAL COURSE: In the ED, white count was elevated at 11.4. Hemoglobin 14.2. Hematocrit 43.4. Platelets were 302. Electrolytes were normal. BUN was 7. Creatinine was 0.84. C-reactive protein was 5.93. Radius and ulna x-ray showed no fracture or dislocation. The patient was medicated for pain and started on vancomycin. In the emergency room, his temperature upon arrival had been 99, pulse 87, respirations 18, blood pressure 122/69, and pulse oximetry of 96% on room air. The patient will be admitted for treatment of cellulitis of the right arm and status post irrigation/debridement (I/D) of abscess, having failed outpatient treatment with oral bactrim. Surgery was consulted and recommended daily irrigation with hydrogen peroxide and continued antibiotic therapy. MRSA PCR was negative and he was eventually switched from IV vanc after dramatic improvement in streaking erythema to only the perimeter of the lesion that was still draining purulent discharge. Unfortunately he did not have a wound culture at admission and it was only collected towards the end of the hospitalization after days of vancomycin. He was eventually switched to keflex and will complete a 10 day course. DISCHARGE MEDICATIONS: Please see below. ALLERGIES: Please see below. PHYSICAL EXAMINATION ON DISCHARGE: VITAL SIGNS: Please see below. General: NAD HEENT: NCAT, PERRLA, EOMI, MMM Pulm: Chest clear to auscultation, without wheeze, crackles or rhonchi Heart: RRR, no mrg Abdomen: soft, NTND Extremities: Right arm with swelling and edema in the right forearm ~5cm from wrist with immediate area with surrounding erythema. Continues to express pus with pinching. LABORATORY DATA: Please see below. IMAGING: Radius/ulna XR: There is no evidence of an acute fracture, dislocation or intrinsic bone disease. No osseous destruction is seen. PROGNOSIS: Good ACTIVITY: As tolerated DIET: Regular DISCHARGE PLAN: Home with 10d of keflex DISPOSITION: home DISCHARGE INSTRUCTIONS: 1. Home with 10d of keflex ITEMS TO FOLLOWUP ON ON OUTPATIENT: 1. cellulitis and resolution of lesion DISCHARGE CONDITION: Stable TIME SPENT ON DISCHARGE: 40 minutes. Vital Signs/I&Os Vital Signs Date Time Temp Pulse Resp B/P (MAP) Pulse Ox O2 Delivery O2 Flow Rate FiO2 05/12/20 09:24 20 05/12/20 06:00 98.0 65 116/70 (85) 97 Room Air I&O- Last 24 Hours up to 6 AM 05/12/20 06:00 Intake Total 3225 ml Output Total 3100 ml Balance 125 ml Laboratory Data Labs 24H Laboratory Tests 2 05/11/20 14:51: Vancomycin Level Trough 10.2 05/11/20 19:54: Methicillin-Resist S.aureus DNA PCR NOT DETECTED 05/12/20 07:19: Immature Granulocyte % (Auto) 0.3, Neutrophils (%) (Auto) 54.3, Lymphocytes (%) (Auto) 30.1, Monocytes (%) (Auto) 9.2H, Eosinophils (%) (Auto) 4.9H, Basophils (%) (Auto) 1.2H, Neutrophils # (Auto) 3.3, Lymphocytes # (Auto) 1.8, Monocytes # (Auto) 0.6, Eosinophils # (Auto) 0.3, Basophils # (Auto) 0.1, Nucleated Red Blood Cells % (auto) 0.0, Anion Gap 6L, Glomerular Filtration Rate > 60.0, Calcium Level 8.8, Total Bilirubin 0.3, Aspartate Amino Transf (AST/SGOT) 13, Alanine Aminotransferase (ALT/SGPT) 16, Alkaline Phosphatase 54, Total Protein 6.6, Albumin 3.1L, Albumin/Globulin Ratio 0.9 CBC/BMP Laboratory Tests 05/12/20 07:19 Microbiology Microbiology 05/12/20 Gram Stain, Received Pending 05/12/20 Wound Culture, Received Pending 05/10/20 Blood Culture - Preliminary, Resulted No Growth after 48 hours. All Specime... 05/10/20 Blood Culture - Preliminary, Resulted No Growth after 48 hours. All Specime... Discharge Medications Scheduled Cephalexin (Cephalexin) 500 Mg Capsule, 1 CAP PO QID Gabapentin (Gabapentin) 300 Mg Capsule, 600 MG PO QHS, (Reported) Scheduled PRN Oxycodone HCl (Oxycodone HCl) 10 Mg Tablet, 10 MG PO QID PRN for PAIN, (Reported) Allergies Coded Allergies: No Known Allergies (Unverified , 07/12/17) NELLY OROURKE MD May 12, 2020 14:41
== END 2020-05-12 14:04 | disposition home or self-care (01) | DRG 603 ==
LOC: M ED 09:30 → M ED INP 13:39 → EEVIPCON 13:39 → ENRESERV 14:49 → M MSPAV 15:09
PROVIDERS: ADMIT Internal Medicine; ATTEND Internal Medicine
DX: L03.113 Cellulitis of right upper limb (principal); B18.2 Chronic viral hepatitis C; E78.00 Pure hypercholesterolemia, unspecified; F17.210 Nicotine dependence, cigarettes, uncomplicated; Z86.73 Personal history of transient ischemic attack (TIA), and cerebral infarction without residual deficits

== ENCOUNTER → 2022-02-26 | Outpatient (REF) | payer OTHER ==
[~2022-02-26] MED LIST changes: -ACET1TAB16; +ACET300T48; +CEPH500C PO; +DOXY-350 PO; +GABA-282 PO; +GABA-283 PO; -GABA-843 PO; -GABA-845 PO
== END ==
LOC: M LAB REF 17:50
PROVIDERS: ATTEND Physician Assistant
DX: R50.9 Fever, unspecified (principal); R11.10 Vomiting, unspecified

== ENCOUNTER → 2022-03-31 | Outpatient (CLI) | payer OTHER ==
[~2022-03-31] MED LIST changes: -AFRI0.058; +OXYM15SP2
[2022-03-31 13:08] LABS: HEMATOCRIT 42.8 % (42.0-52.0); HEMOGLOBIN 14.1 g/dl (13.5-17.5); MEAN CORPUSCULAR HEMOGLOBIN 28.5 pg (27.0-33.0); MEAN CORPUSCULAR HGB CONC 32.9 g/dl (32.0-36.5); MEAN CORPUSCULAR VOLUME 86.6 fl (80.0-96.0); PLATELET COUNT, AUTOMATED 265 10^3/uL (150-450); RED BLOOD COUNT 4.94 10^6/uL (4.30-6.10); WHITE BLOOD COUNT 11.3 10^3/uL (4.0-10.0)
[2022-03-31 13:42] LABS: ALBUMIN 3.7 GM/DL (3.2-5.2); ALT/SGPT 33 U/L (12-78); BILIRUBIN,TOTAL 0.5 MG/DL (0.2-1.0); BLOOD UREA NITROGEN 12 MG/DL (7-18); CALCIUM LEVEL 9.6 MG/DL (8.5-10.1); CARBON DIOXIDE LEVEL 32 MEQ/L (21-32); CHLORIDE LEVEL 105 MEQ/L (98-107); CREATININE FOR GFR 0.84 MG/DL (0.70-1.30); GLOMERULAR FILTRATION RATE > 60.0 (>60); GLUCOSE, FASTING 76 MG/DL (70-100); POTASSIUM SERUM 4.1 MEQ/L (3.5-5.1); SODIUM LEVEL 141 MEQ/L (136-145); TOTAL PROTEIN 7.2 GM/DL (6.4-8.2)
[2022-03-31 15:39] LABS: GC DNA AMPLIFICATION NEGATIVE (NEGATIVE)
[2022-03-31 15:47] LABS: HEPATITIS B SURFACE ANTIGEN NEGATIVE (NEGATIVE)
[2022-03-31 16:16] LABS: HIV 1&2 SCREEN CENTAUR NEGATIVE (NEGATIVE)
[2022-03-31 16:24] LABS: HEPATITIS C VIRUS ABY INDEX > 11.0 INDEX (<0.8)
== END ==
LOC: M WUC 10:15
PROVIDERS: ATTEND Family Medicine
DX: F11.20 Opioid dependence, uncomplicated (principal)

== ENCOUNTER → 2022-07-21 | Outpatient (REF) | payer OTHER | LOC: M LAB REF 21:26 | PROVIDERS: ATTEND Physician Assistant | DX: J02.9 Acute pharyngitis, unspecified (principal) ==